=== PATIENT | female | born 1950 | race Caucasian/White ===

== ENCOUNTER 2017-03-04 07:37 | Day surgery (SDC) | payer MEDICAID ==
[2017-03-04] MEDS ORDERED: Sodium Chloride 0.9% 10 ML Syringe FLUSH PRN (08:30)
[2017-03-04 10:53] VITALS: BP 120/74
--- NOTE | 2017-03-05 13:36 | OR ---
DATE OF PROCEDURE: 03/04/2017 POSTOPERATIVE CARE: Postoperative care will be provided mainly at the [address] [place] [address] [facility] in conjunction with [facility]. PREOPERATIVE DIAGNOSIS: Cataract, right eye. PREOPERATIVE DIAGNOSIS: Cataract, right eye. PROCEDURE: Phacoemulsification with intraocular lens placement, right eye. ANESTHESIA: Topical and intracameral. ESTIMATED BLOOD LOSS: Minimal. COMPLICATIONS: None. PATHOLOGY SPECIMENS: None. SURGICAL FINDINGS: None. INDICATION FOR PROCEDURE: The patient is a 66-year-old female with history of a visually significant cataract in the right eye, which interfered with activities of daily living. This consisted of a nuclear sclerosis cataract. Following careful discussion of the risks, benefits and alternatives to cataract extraction with intraocular lens placement including blindness and , the patient elected to proceed, and informed, written consent was obtained prior to the procedure. DESCRIPTION OF THE PROCEDURE: The patient was previously identified, and a cole placed above the right eye. All sources, including the patient, indicated that the right eye was the correct eye. The patient was subsequently taken to the operating room where standard monitors were applied. The patient was then prepped and draped in the usual sterile fashion for ophthalmic surgery. Attention was first directed at the 12 o'clock position where a paracentesis port was fashioned. Shugar solution followed by Viscoat was instilled into the eye. Attention was then directed to the 8:30 position where a triplanar incision was made in a near-clear manner using a keratome. A continuous capsulorrhexis was then made using a combination of the cystotome and Utrata forceps. Hydrodissection was achieved using a balanced salt solution, and the lens rotated nicely. Phacoemulsification was then done using a modified [id number] technique without complication. Phaco time was 10.10 CDE. The remaining cortex was removed using the irrigation/aspiration handpiece. Provisc was then instilled into the eye. A Technis lens, model [id number], at 20.0 diopters was then placed in the capsular bag using an Reklaw injector. The remaining viscoelastic was removed using the irrigation/aspiration forceps. All wounds were then checked and found to be watertight. The lid speculum and drapes were removed. Maxitrol ointment was placed in the patient's right eye, and the eye was shielded. The patient tolerated the procedure well. The patient was instructed to follow up tomorrow. All needle and sponge counts were correct at the end of the procedure. Estephania Worthy MD /[id number]
== END 2017-03-04 10:40 | disposition home or self-care (01) ==
LOC: JP.SDS 07:37
PROVIDERS: ATTEND Ophthalmology
DX: H26.9 Unspecified cataract (principal); K21.9 Gastro-esophageal reflux disease without esophagitis; Z88.8 Allergy status to other drugs, medicaments and biological substances; Z91.040 Latex allergy status
CPT/HCPCS: 66984; C1780

== ENCOUNTER 2017-06-02 11:57 | Day surgery (SDC) | payer MEDICARE, BC | END 2017-06-02 15:35 | disposition home or self-care (01) | LOC: JP.SDS 11:57 | PROVIDERS: ATTEND Orthopaedic Surgery | DX: Z46.89 Encounter for fitting and adjustment of other specified devices (principal); Z91.040 Latex allergy status; Z88.8 Allergy status to other drugs, medicaments and biological substances; Z01.812 Encounter for preprocedural laboratory examination; Z13.83 Encounter for screening for respiratory disorder NEC; M54.5 Low back pain | CPT/HCPCS: 36415; 80053; 85027; 86850; 86870; 86900; 86901; 86905; 86906; 87070; 93005; 93010; 97535-GP; 97760-GP ==

== ENCOUNTER 2017-08-03 07:30 | Inpatient (IN) | payer MEDICARE, BC ==
[~2017-08-03 07:30] MED LIST: Povidone-Iodine 10% Soln 118.25 ML Bottle ONE; Thrombin (Bovine) 5,000 Unit Kit ONE
[2017-08-03] MEDS ORDERED: Acetaminophen 500 MG Tab PO ONE (08:00)
[2017-08-03] MEDS ORDERED: Scopolamine 1.5 MG Transdermal Patch TOP SCH (08:00)
[2017-08-03] MEDS ORDERED: Lactated Ringers 1,000 ML IV SCH (08:15)
[2017-08-03] MEDS ORDERED: Gabapentin 300 MG Cap PO ONE (08:15)
[2017-08-03] MEDS ORDERED: ceFAZolin 2 GM in Sodium Chloride 0.9% 50 ML IV ONE (09:30)
[2017-08-03] MEDS ORDERED: Ketamine 500 MG/5 ML MDV IV SCH (10:00)
[2017-08-03] MEDS ORDERED: Tranexamic Acid 1,000 MG in Sodium Chloride 0.9% 50 ML IV SCH (10:00)
[2017-08-03] MEDS ORDERED: Ropivacaine 49.25 ML, Ketorolac 30 MG, EPINEPHrine 0.5 MG, cloNIDine 80 MCG, Sodium Chl... INJECT ONE ×5 (10:00)
[2017-08-03] MEDS ORDERED: Tranexamic Acid 740 MG in Sodium Chloride 0.9% 50 ML IV SCH (10:00)
[2017-08-03] MEDS ORDERED: Propofol 200 MG/20 ML SDV ONE (10:02)
[2017-08-03] MEDS ORDERED: Neostigmine Methylsulfate 1 MG/ML 5 ML Syringe ONE (10:02)
[2017-08-03] MEDS ORDERED: Ondansetron 4 MG/2 ML SDV ONE ×2 (10:02→13:44)
[2017-08-03] MEDS ORDERED: Rocuronium 50 MG/5 ML Vial ONE ×2 (10:02→11:50)
[2017-08-03] MEDS ORDERED: Glycopyrrolate 0.2 MG/ML 5 ML MDV ONE (10:02)
[2017-08-03] MEDS ORDERED: Dexamethasone 4 MG/ML SDV ONE (10:02)
[2017-08-03] MEDS ORDERED: Succinylcholine 200 MG/10 ML MDV ONE (10:02)
[2017-08-03] MEDS ORDERED: Midazolam 1 MG/ML 2 ML SDV ONE (10:21)
[2017-08-03] MEDS ORDERED: HYDROmorphone/Normal Saline 15 MG/30 ML PCA IV PRN (10:56)
[2017-08-03] MEDS ORDERED: Naloxone 0.4 MG/ML SDV IV PRN ×2 (11:04→15:34)
[2017-08-03] MEDS ORDERED: Lactated Ringers 1,000 ML ONE (12:00)
[2017-08-03] MEDS ORDERED: Cyclobenzaprine 10 MG Tab PO PRN (15:39)
[2017-08-03] MEDS: Dextrose 5%-Lactated Ringers 1,000 ML IV SCH (15:56)
[2017-08-03] MEDS: SCOPOLAMINE PATCH CHECK TOP SCH (15:56)
[2017-08-03] MEDS ORDERED: Ondansetron 4 MG/2 ML SDV IVPUSH PRN (16:00)
[2017-08-03] MEDS ORDERED: hydrOXYzine HCl 100 MG/2 ML SDV IM PRN (16:00)
[2017-08-03] MEDS: Gabapentin 300 MG Cap PO SCH ×2 (16:23→22:47)
[2017-08-03] MEDS: Acetaminophen 325 MG Tab PO SCH ×2 (16:23→22:48)
[2017-08-03] MEDS: Pantoprazole 40 MG Vial IVPUSH SCH (16:24)
[2017-08-03] MEDS: ceFAZolin 2 GM in Sodium Chloride 0.9% 50 ML IV SCH (17:40)
[2017-08-03] MEDS ORDERED: diphenhydrAMINE 50 MG/ML SDV IVPUSH PRN (19:55)
--- NOTE | 2017-08-03 20:38 | OR ---
DATE OF PROCEDURE: 08/03/2017 PREOPERATIVE DIAGNOSIS: L5-S1 stenosis. POSTOPERATIVE DIAGNOSIS: L5-S1 stenosis. PROCEDURES PERFORMED: Anterior lumbar interbody fusion at L5-S1. CO-SURGEON: Olivier Hill MD. PSYCH TECH: BEVERLY Smith. Physician orthotics prosthetics assistant, Flaca Zamora NP, played an essential role in assisting in this case, helping to position the patient, retract structures as needed, as well as suturing and cutting sutures as indicated. Her presence improved patient's safety and decreased operative time. ANESTHESIA: General endotracheal intubation. FLUIDS: Lactated Ringer solution. ESTIMATED BLOOD LOSS: 400 mL. COMPLICATIONS: None. SPECIMENS: None. DISCHARGE DISPOSITION: Stable to PACU. HISTORY AND INDICATIONS FOR PROCEDURE: The patient was seen preoperatively in the clinic. She had failed non-operative treatment. Risks and benefits of the procedure were explained to the patient, and informed consent was obtained. Preoperative imaging confirmed the above- mentioned diagnosis. DETAILS OF PROCEDURE: The patient was seen preoperatively in the preoperative holding area, where the operative site was marked. She was brought to the operative suite by the Anesthesia staff where general anesthesia was administered. Neuromonitoring leads were placed and normal at baseline, and remained normal throughout the case. She had a sterile Roblero catheter placed. She was then placed onto a Reji table with a flat table in a supine position. All extremities were found to be well padded. The abdomen was then prepped and draped in a sterile manner. Time-out was called identifying the correct patient, the correct procedure, the correct site, and that antibiotics had begun within appropriate period of time. Please see Dr. Olivier Hill's note for exposure. After the exposure had been obtained and confirmed on lateral and AP fluoroscopy to be in good position, I then went through the anterior longitudinal ligament and annulus with the Bovie electrocautery to demarcate the margins of the disk space. We used a #10 blade to incise through the annulus and nucleus pulposus as well as the attachments to the vertebrae. I then used a wide Townsend along the inferior L5 and superior S1 endplates. I then removed most of the disk en bloc. I then used curettes and pituitaries to remove the remainder of the disk as back as far as I could. I then started with a 9-mm wedge on the side of the stenosis, which was the left, and it was very difficult to get in. I then was able to get in with an 11, and then moved to a 13 on the right and then a 13 on the left, and a 15 on the right and a 15 on the left. I confirmed that this had been opened wide enough on fluoroscopy. As I widened it, I was able to remove more of the posterior disk down to the level of the posterior longitudinal ligament. After this had been accomplished, I then inserted a trial 15, 25 x 31 implant and confirmed that this was in good position on fluoroscopy. After this had been accomplished, we then inserted our final Magnify-S by Globus 25 x 31, 14 to 17, 15-degree implant posteriorly enough on lateral fluoroscopy. Then, using an awl and screws, inserted a 25-mm screw into L5 and then two 30-mm screws into S1. Because of how far the S1 screw went, I did remove the screw, and then checked with a spinal needle that we were still in bone, and which we were. We then locked the screws into place with a locking mechanism and then irrigated again with saline. We took our final AP and lateral films, which showed the implant in good position. We then handed the case back off to Dr. Olivier Hill. Please see his notes for closure. Rai Hill DO /[id number]
[2017-08-03] MEDS: Metoprolol Tartrate 25 MG Tab PO SCH (22:46)
[2017-08-03] MEDS: Sulfamethoxazole/Trimethoprim 800-160 MG Tab PO SCH (22:48)
[2017-08-04] MEDS: ceFAZolin 2 GM in Sodium Chloride 0.9% 50 ML IV SCH ×2 (01:53→09:37)
[2017-08-04] MEDS: Acetaminophen 325 MG Tab PO SCH ×4 (03:41→22:00)
[2017-08-04] MEDS: Dextrose 5%-Lactated Ringers 1,000 ML IV SCH (05:52)
[2017-08-04] MEDS ORDERED: Dextrose 5%-Lactated Ringers 1,000 ML IV SCH (07:24)
[2017-08-04] MEDS ORDERED: HYDROmorphone 2 MG Tab PO PRN (07:46)
[2017-08-04] MEDS: Aspirin 81 MG Tab.EC PO SCH (09:26)
[2017-08-04] MEDS: Gabapentin 300 MG Cap PO SCH ×3 (09:26→21:55)
[2017-08-04] MEDS: SCOPOLAMINE PATCH CHECK TOP SCH (09:32)
[2017-08-04] MEDS: Sulfamethoxazole/Trimethoprim 800-160 MG Tab PO SCH ×2 (09:33→22:00)
[2017-08-04] MEDS: Metoprolol Tartrate 25 MG Tab PO SCH ×2 (10:19→21:56)
--- NOTE | 2017-08-04 10:57 | PN ---
DATE OF SERVICE: 08/04/2017 SUBJECITVE: Ping is postop day 1. She is alert. TPR is 97.7, 58, 20, blood pressure 97/50. O2 saturation by pulse oximetry is 91%. States her pain is controlled. She has no other questions or concerns. OBJECTIVE: GENERAL: Ping is a 67-year-old female. VITAL SIGNS: TPR is 97.7, 58, 20, blood pressure 97/50. Oral intake 50. She has been on ice chips. Output 1020. ESTELLA drain put out 50 mL of a light pink serosanguineous drainage. HEENT: Negative. NECK: Supple. HEART: Regular rate and rhythm. LUNGS: Clear. ABDOMEN: Dressings dry and intact. Abdominal binder is on. EXTREMITIES: Without peripheral edema. ASSESSMENT: Anterior lumbar interbody fusion at L5-S1 for L5-S1 stenosis. Date of surgery 08/03/2017. PLAN: 1. 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 2. Discontinue continuous pulse ox. 3. Dilaudid 2 mg 1 to 2 every 4 hours p.r.n. pain. 4. Discontinue Roblero. 5. Regular diet. 6. Decrease IV to 100 mL per hour now. 7. Saline lock IV if oral intake adequate. 8. Senna Plus 2 b.i.d. p.o. 9. Good pulmonary toilet. 10.We will evaluate p.r.n. or in a.m. Maliha Alcantara PA-C /[id number]
[2017-08-04] MEDS: HYDROmorphone 2 MG Tab PO PRN ×2 (14:50→20:14)
[2017-08-04] MEDS: Pantoprazole 40 MG Vial IVPUSH SCH (16:37)
[2017-08-05] MEDS: Acetaminophen 325 MG Tab PO SCH ×4 (03:07→21:08)
[2017-08-05] MEDS: Aspirin 81 MG Tab.EC PO SCH (09:06)
[2017-08-05] MEDS: Sulfamethoxazole/Trimethoprim 800-160 MG Tab PO SCH (09:07)
[2017-08-05] MEDS: Gabapentin 300 MG Cap PO SCH ×3 (09:07→20:03)
[2017-08-05] MEDS: SCOPOLAMINE PATCH CHECK TOP SCH (09:09)
[2017-08-05] MEDS: Metoprolol Tartrate 25 MG Tab PO SCH ×2 (11:32→20:05)
[2017-08-05] MEDS: HYDROmorphone 2 MG Tab PO PRN ×2 (12:34→21:10)
[2017-08-05] MEDS ORDERED: Pantoprazole 40 MG Tab.CR PO SCH (16:30)
[2017-08-06] MEDS: Acetaminophen 325 MG Tab PO SCH ×2 (03:33→10:01)
--- NOTE | 2017-08-06 05:34 | PCM.PN ---
- General Info Date of Service: 08/06/17 Admission Dx/Problem (Free Text): Patient is doing well. She did get behind on her pain medication. She did get a good night sleep. She ambulated much better. Functional Status: Reports: Pain Controlled, Tolerating Diet, Ambulating, Urinating - Patient Data Vitals - Most Recent: Last Vital Signs Temp 36.5 C 08/06/17 03:00 Pulse 74 08/06/17 03:00 Resp 16 08/06/17 03:00 BP 117/66 08/06/17 03:00 Pulse Ox 92 L 08/06/17 03:00 Weight - Most Recent: 157 lb I&O - Last 24 Hours: Intake & Output 08/05/17 08/05/17 08/06/17 14:59 22:59 06:59 Intake Total 360 355 500 Output Total 850 5 Balance 360 -495 495 Med Orders - Current: Current Medications Acetaminophen (Tylenol) 650 mg PO Q6H [facility] Last Admin: 08/06/17 03:33 Dose: 650 mg Aspirin (Halfprin) 81 mg PO DAILY [facility] Last Admin: 08/05/17 09:06 Dose: 81 mg Cyclobenzaprine HCl (Flexeril) 10 mg PO Q6H PRN PRN Reason: Muscle Spasm Last Admin: 08/05/17 23:38 Dose: 10 mg Diphenhydramine HCl (Benadryl) 25 - 50 mg IVPUSH Q4H PRN PRN Reason: Itching Last Admin: 08/03/17 21:36 Dose: 25 mg Gabapentin (Neurontin) 300 mg PO TID [facility] Last Admin: 08/05/17 20:03 Dose: 300 mg Hydromorphone HCl (Dilaudid) 2 - 4 mg PO Q4H PRN PRN Reason: Pain Last Admin: 08/05/17 21:10 Dose: 2 mg Hydroxyzine HCl (Vistaril) 100 mg IM Q4H PRN PRN Reason: pain Dextrose/Lactated Ringer's (Dextrose 5%-Lactated Ringers) 1,000 mls @ 100 mls/ hr IV ASDIRECTED [facility] Metoprolol Tartrate (Lopressor) 25 mg PO BID [facility] Last Admin: 08/05/17 20:05 Dose: 25 mg Ondansetron HCl (Zofran) 4 mg IVPUSH Q4H PRN PRN Reason: Nausea/Vomiting Pantoprazole Sodium (Protonix) 40 mg PO DAILY@1630 [facility] Last Admin: 08/05/17 15:31 Dose: 40 mg Senna/Docusate Sodium (Senna Plus) 2 tab PO BID [facility] Last Admin: 08/05/17 20:07 Dose: 2 tab Discontinued Medications Acetaminophen (Tylenol Extra Strength) 1,000 mg PO ONETIME ONE Stop: 08/03/17 08:01 Last Admin: 08/03/17 08:26 Dose: 1,000 mg Dexamethasone (Dexamethasone) Confirm Administered Dose 4 mg .ROUTE .STK-MED ONE Stop: 08/03/17 10:03 Fentanyl Citrate (Fentanyl) Confirm Administered Dose 500 mcg .ROUTE .STK-MED ONE Stop: 08/03/17 10:03 Fentanyl Citrate (Fentanyl) Confirm Administered Dose 500 mcg .ROUTE .STK-MED ONE Stop: 08/03/17 11:30 Gabapentin (Neurontin) 300 mg PO ONETIME ONE Stop: 08/03/17 08:16 Last Admin: 08/03/17 08:26 Dose: 300 mg Glycopyrrolate (Robinul) Confirm Administered Dose 1 mg .ROUTE .STK-MED ONE Stop: 08/03/17 10:03 Hydromorphone HCl (Dilaudid Medical Representative 15 Mg In Ns 30 Ml) 0 mg IV ASDIRECTED PRN; Protocol PRN Reason: Pain Last Admin: 08/03/17 11:16 Dose: 0.3 mg Cefazolin Sodium 2 gm/ Sodium (Chloride) 50 mls @ 100 mls/hr IV ONETIME ONE Stop: 08/03/17 09:59 Last Admin: 08/03/17 10:30 Dose: 100 mls/hr Lactated Ringer's (Ringers, Lactated) 1,000 mls @ 0 mls/hr IV ASDIRECTED [facility] PRN Reason: KVO Last Admin: 08/03/17 08:27 Dose: 25 mls/hr Linezolid (Zyvox) Confirm Administered Dose 100 mls @ as directed .ROUTE .STK- MED ONE Stop: 08/03/17 06:47 Propofol (Diprivan 100 Ml) Confirm Administered Dose 100 mls @ as directed .ROUTE .STK-MED ONE Stop: 08/03/17 10:38 Lactated Ringer's (Ringers, Lactated) Confirm Administered Dose 1,000 mls @ as directed .ROUTE .STK-MED ONE Stop: 08/03/17 12:01 Dextrose/Lactated Ringer's (Dextrose 5%-Lactated Ringers) 1,000 mls @ 150 mls/ hr IV ASDIRECTED [facility] Last Admin: 08/04/17 05:52 Dose: 150 mls/hr Cefazolin Sodium 2 gm/ Sodium (Chloride) 50 mls @ 100 mls/hr IV Q8H [facility] Stop: 08/04/17 09:59 Last Admin: 08/04/17 09:37 Dose: 100 mls/hr Midazolam HCl (Versed 1 Mg/Ml) Confirm Administered Dose 2 mg .ROUTE .STK-MED ONE Stop: 08/03/17 10:22 Miscellaneous Information (Remove Patch) 1 ea TRDERM ONETIME ONE Stop: 08/05/17 10:01 Last Admin: 08/05/17 09:10 Dose: 1 ea Naloxone HCl (Narcan) 0.1 mg IV ASDIRECTED PRN PRN Reason: decreased respiratory rate Neostigmine Methylsulfate (Neostigmine) Confirm Administered Dose 5 mg .ROUTE .STK-MED ONE Stop: 08/03/17 10:03 Scopolamine Patch (Check) 1 each TOP DAILY [facility] Stop: 08/05/17 10:00 Last Admin: 08/05/17 09:09 Dose: Not Given Ondansetron HCl (Zofran) Confirm Administered Dose 4 mg .ROUTE .STK-MED ONE Stop: 08/03/17 10:03 Ondansetron HCl (Zofran) Confirm Administered Dose 4 mg .ROUTE .STK-MED ONE Stop: 08/03/17 13:45 Pantoprazole Sodium (Protonix Iv) 40 mg IVPUSH Q24H [facility] Last Admin: 08/04/17 16:37 Dose: 40 mg Povidone Iodine (Betadine 10% Soln) Confirm Administered Dose 1 ml .ROUTE .STK- MED ONE Stop: 08/03/17 06:48 Propofol (Diprivan 20 Ml) Confirm Administered Dose 200 mg .ROUTE .STK-MED ONE Stop: 08/03/17 10:03 Rocuronium Harmony (Zemuron) Confirm Administered Dose 50 mg .ROUTE .STK-MED ONE Stop: 08/03/17 10:03 Rocuronium Harmony (Zemuron) Confirm Administered Dose 50 mg .ROUTE .STK-MED ONE Stop: 08/03/17 11:51 Scopolamine (Transderm-Scop) 1.5 mg TOP Q72H [facility] Stop: 08/05/17 10:00 Last Admin: 08/03/17 08:26 Dose: 1.5 mg Succinylcholine Chloride (Quelicin) Confirm Administered Dose 200 mg .ROUTE .STK -MED ONE Stop: 08/03/17 10:03 Thrombin (Thrombin-Jmi) Confirm Administered Dose 15,000 unit .ROUTE .STK-MED ONE Stop: 08/03/17 06:47 Trimethoprim/Sulfamethoxazole (Septra Ds) 1 tab PO BID [facility] Last Admin: 08/05/17 09:07 Dose: 1 tab - Exam General: Alert, Oriented Back Exam: Normal Inspection Extremities: Normal Inspection, Normal Range of Motion, Non-Tender, No Pedal Edema, Normal Capillary Refill Peripheral Pulses: 2+: Dorsalis Pedis (L), Dorsalis Pedis (R) Skin: Warm, Dry, Intact Wound/Incisions: Healing Well, Dressing Dry and Intact Neurological: No New Focal Deficit Psy/Mental Status: Alert - Problem List Review Problem List Initiated/Reviewed/Updated: Yes - Plan Plan:: Patient will be planned to be discharged today. She will continue on oral pain medication as prescribed. I will recommend for her having home health services.
[2017-08-06 07:21] VITALS: BP 111/56
--- NOTE | 2017-08-06 07:51 | DISCH ---
ADMISSION DIAGNOSES: 1. Low back pain at L5 to S1. 2. Waggoner esophagus. 3. Breast cancer, left. 4. Breast cancer, right. DISCHARGE DIAGNOSIS: Anterior lumbar interbody fusion for L5-S1 stenosis. Date of surgery was 08/03/2017. General anesthesia. Surgeons were Olivier Hill MD and Rai Hill DO. HISTORY: Ping is a 67-year-old female with chronic back pain. After preoperative evaluation and discussion of possible risks and possible complications, she wished to proceed with surgical procedure. HOSPITAL COURSE: Ping had her surgery on 08/03/2017. She had no operative complications. On postoperative day #1, she was started on oral pain medication. She received physical therapy. She had bowel stimulation. On postoperative day #2, her pain was well managed. Vital signs were stable. Activity was good, and she was able to be discharged to home. PHYSICAL EXAMINATION: GENERAL: Ping is a 67-year-old female. VITAL SIGNS: Height is 5 feet 5 inches. Weight is 157 pounds and BMI is 26. TPR with temperature of 98.9, pulse of 64, and respirations of 18. Blood pressure was 87/49 and O2 sats by pulse oximetry was 95%. HEENT: Negative. NECK: Supple. HEART: Regular rate and rhythm. PULMONARY: Lungs are clear. ABDOMEN: Aquacel dressing is on. It will be removed prior to discharge. ESTELLA drain is intact, and will be left in. It is draining a light red drainage. Abdominal binder has been on. EXTREMITIES: Without peripheral edema. DISPOSITION: Discharged to home. CONDITION: Stable and improving. FOLLOWUP APPOINTMENTS: Maliha Alcantara PA-C on 08/12/2017 at 10 a.m. She has a followup appointment with Dr. Evgeny Hill per his order. HOME MEDICATIONS: 1. Tylenol 650 mg oral q.6 hours p.r.n. pain. 2. Senna Plus two tablets oral twice daily, #60. 3. Dilaudid 2 mg one to two every 4 hours p.r.n. severe pain, #20. She is to resume her home medications of 1. Pepcid 40 mg at bedtime. 2. Claritin 10 mg oral daily. 3. Lopressor 25 mg oral twice daily. 4. Tizanidine 4 mg oral daily. DIET AFTER DISCHARGE: Usual diet as tolerated. Drink eight to ten glasses of water a day. ACTIVITY: No lifting greater than 10 pounds for six months. Driving, do not drive while on pain medication. She may shower. DISCHARGE INSTRUCTIONS: Notify provider if fever, increased pain, drainage, nausea, or vomiting. Wound, keep site clean and dry. Wear abdominal binder for six weeks, and then as tolerated. Empty and record drainage from the ESTELLA drain four times a day. SPECIAL INSTRUCTIONS Use incentive spirometer 10 times every hour while awake. Follow postoperative instructions from Dr. Evgeny Hill regarding your back.
[2017-08-06] MEDS: Metoprolol Tartrate 25 MG Tab PO SCH (08:08)
[2017-08-06] MEDS: Gabapentin 300 MG Cap PO SCH (08:08)
[2017-08-06] MEDS: Aspirin 81 MG Tab.EC PO SCH (08:08)
[2017-08-06] MEDS: HYDROmorphone 2 MG Tab PO PRN ×2 (08:09→11:50)
--- NOTE | 2017-08-06 12:48 | DISCH ---
HOSPITAL COURSE: Ping is postop day #3 following a lumbar spinal fusion. She was discharged officially yesterday. She had some low blood pressures in the morning of 87/49, 84/85, 93/52 that was at 11:12. The next time it was checked was 106/58 and 118/51. Also, she has been getting behind on pain medicine. REVIEW OF SYSTEMS: Remainder of review of systems was negative for any pertinent positives and negatives. PHYSICAL EXAMINATION: GENERAL: Ping is a 67-year-old female. VITAL SIGNS: TPR 99.1, 62, 18, and blood pressure 111/56. HEENT: Negative. NECK: Supple. HEART: Regular rate and rhythm. LUNGS: Clear. ABDOMEN: Dressings dry and intact. Abdominal binder is on. EXTREMITIES: Negative. PLAN: May be discharged to home. See copy of discharge summary from 08/05/2017 at 0800 hours.
--- NOTE | 2017-08-09 09:18 | OR ---
DATE OF PROCEDURE: 08/03/2017 PREOPERATIVE DIAGNOSIS: Lumbar stenosis involving L5-S1 level. POSTOPERATIVE DIAGNOSES: 1. Lumbar stenosis involving L5-S1 level. 2. Avulsion of branch of left common iliac vein. OPERATIVE PROCEDURES: 1. Provision of exposure of L5-S1 to facilitate anterior lumbar interbody fusion ([id number]). 2. Lateral repair of left common iliac vein ([id number]). ANESTHESIA: General. TWISTER IN: BEVERLY Ordaz INDICATION FOR PROCEDURE: This is a 67-year-old presenting with lumbar stenosis involving L5 and S1. After preoperative evaluation by Dr. Evgeny Hill, the plan is to proceed with an anterior lumbar interbody fusion. Potential risks of the procedure were reviewed with the patient including bleeding, infection, injury to the vasculature in the area with potentially life-threatening bleeding, injury to the ureter or other viscera in the vicinity were all reviewed, and the patient wishes to proceed. DETAILS OF PROCEDURE: The patient was taken to the operating room and after general endotracheal anesthesia was induced, she was placed in a supine position with a roll underneath the left knee to loosen the psoas muscle. Roblero catheter was inserted. A left lower abdominal paramedian incision was then made and carried down through the skin and subcutaneous tissue, and through the midportion of the rectus sheath. Subrectus sheath flaps were then raised laterally to the edge of the rectus muscle. At that point, the peritoneum lateral and posteriorly to the area of incision was reflected away and then retracted medially. Initially, the dissection continued over the course of the psoas muscle and neural complex was then elevated above with the peritoneum eventually exposing the distal aorta over to the level of the right iliac vessels. The dissection of the left iliac vein then began in order to obtain an adequate width of exposure of the L5-S1 interspace. A branch at that point was noted to be densely adherent to the posterior periosteum and a small avulsion was noted. This was controlled with pressure proximally and distally, and a lateral repair of the common iliac vein on the left side where the branches avulsed more or less flush with the remainder of the iliac vessel was accomplished with a [id number] stitch of 5-0 Whiteside-Rodney stitch. Of course, this did result in around 400 mL of bleeding, but the patient remained hemodynamically stable. At this point, the additional retraction was accomplished with a retractor set and then securing an adequate width of the L5-S1 interspace. The orthopedic portion of the procedure was then conducted. This would be a separate dictation with Dr. Evgeny Hill. Upon completion of the interbody fusion, the area was inspected. Some fibrin sealant was placed over the area of the vascular repair and the entire incision was irrigated with Zyvox- containing saline solution. The retractors were removed and no bleeding or other problems were noted at this point. The rectus fascia was approximated with a #2 Vicryl stitch. The subcutaneous tissue was drained with a 10-Wolof round Reji-Bateman drain placed superior to the main incision, and the subcutaneous tissue was closed with 2 layers of 3-0 Vicryl stitch, this was also used to fix the drain in place. The skin was then closed with davian. There were no evident complications. The patient was taken to the recovery room in a satisfactory condition. Olivier Hill MD /[id number]
--- NOTE | 2017-08-24 11:09 | PCM.PN ---
- General Info Date of Service: 08/05/17 Subjective Update: Patient is pod 1 of a ALIF. She is doing well. She continue to have her pain controlled at this time. Functional Status: Reports: Pain Controlled, Tolerating Diet, Ambulating - Patient Data Vitals - Most Recent: Last Vital Signs Temp 37.3 C 08/06/17 07:00 Pulse 62 08/06/17 08:08 Resp 18 08/06/17 07:00 BP 111/56 L 08/06/17 08:08 Pulse Ox 92 L 08/06/17 07:00 Weight - Most Recent: 157 lb Med Orders - Current: Current Medications Discontinued Medications Acetaminophen (Tylenol Extra Strength) 1,000 mg PO ONETIME ONE Stop: 08/03/17 08:01 Last Admin: 08/03/17 08:26 Dose: 1,000 mg Acetaminophen (Tylenol) 650 mg PO Q6H [facility] Last Admin: 08/06/17 10:01 Dose: 650 mg Aspirin (Halfprin) 81 mg PO DAILY [facility] Last Admin: 08/06/17 08:08 Dose: 81 mg Cyclobenzaprine HCl (Flexeril) 10 mg PO Q6H PRN PRN Reason: Muscle Spasm Last Admin: 08/05/17 23:38 Dose: 10 mg Dexamethasone (Dexamethasone) Confirm Administered Dose 4 mg .ROUTE .STK-MED ONE Stop: 08/03/17 10:03 Diphenhydramine HCl (Benadryl) 25 - 50 mg IVPUSH Q4H PRN PRN Reason: Itching Last Admin: 08/03/17 21:36 Dose: 25 mg Fentanyl Citrate (Fentanyl) Confirm Administered Dose 500 mcg .ROUTE .STK-MED ONE Stop: 08/03/17 10:03 Fentanyl Citrate (Fentanyl) Confirm Administered Dose 500 mcg .ROUTE .STK-MED ONE Stop: 08/03/17 11:30 Gabapentin (Neurontin) 300 mg PO ONETIME ONE Stop: 08/03/17 08:16 Last Admin: 08/03/17 08:26 Dose: 300 mg Gabapentin (Neurontin) 300 mg PO TID [facility] Last Admin: 08/06/17 08:08 Dose: 300 mg Glycopyrrolate (Robinul) Confirm Administered Dose 1 mg .ROUTE .STK-MED ONE Stop: 08/03/17 10:03 Hydromorphone HCl (Dilaudid Entrance Guard 15 Mg In Ns 30 Ml) 0 mg IV ASDIRECTED PRN; Protocol PRN Reason: Pain Last Admin: 08/03/17 11:16 Dose: 0.3 mg Hydromorphone HCl (Dilaudid) 2 - 4 mg PO Q4H PRN PRN Reason: Pain Last Admin: 08/06/17 11:50 Dose: 4 mg Hydroxyzine HCl (Vistaril) 100 mg IM Q4H PRN PRN Reason: pain Cefazolin Sodium 2 gm/ Sodium (Chloride) 50 mls @ 100 mls/hr IV ONETIME ONE Stop: 08/03/17 09:59 Last Admin: 08/03/17 10:30 Dose: 100 mls/hr Lactated Ringer's (Ringers, Lactated) 1,000 mls @ 0 mls/hr IV ASDIRECTED HERBER PRN Reason: KVO Last Admin: 08/03/17 08:27 Dose: 25 mls/hr Linezolid (Zyvox) Confirm Administered Dose 100 mls @ as directed .ROUTE .STK- MED ONE Stop: 08/03/17 06:47 Propofol (Diprivan 100 Ml) Confirm Administered Dose 100 mls @ as directed .ROUTE .STK-MED ONE Stop: 08/03/17 10:38 Lactated Ringer's (Ringers, Lactated) Confirm Administered Dose 1,000 mls @ as directed .ROUTE .STK-MED ONE Stop: 08/03/17 12:01 Dextrose/Lactated Ringer's (Dextrose 5%-Lactated Ringers) 1,000 mls @ 150 mls/ hr IV ASDIRECTED [facility] Last Admin: 08/04/17 05:52 Dose: 150 mls/hr Cefazolin Sodium 2 gm/ Sodium (Chloride) 50 mls @ 100 mls/hr IV Q8H [facility] Stop: 08/04/17 09:59 Last Admin: 08/04/17 09:37 Dose: 100 mls/hr Dextrose/Lactated Ringer's (Dextrose 5%-Lactated Ringers) 1,000 mls @ 100 mls/ hr IV ASDIRECTED [facility] Metoprolol Tartrate (Lopressor) 25 mg PO BID [facility] Last Admin: 08/06/17 08:08 Dose: 25 mg Midazolam HCl (Versed 1 Mg/Ml) Confirm Administered Dose 2 mg .ROUTE .STK-MED ONE Stop: 08/03/17 10:22 Miscellaneous Information (Remove Patch) 1 ea TRDERM ONETIME ONE Stop: 08/05/17 10:01 Last Admin: 08/05/17 09:10 Dose: 1 ea Naloxone HCl (Narcan) 0.1 mg IV ASDIRECTED PRN PRN Reason: decreased respiratory rate Neostigmine Methylsulfate (Neostigmine) Confirm Administered Dose 5 mg .ROUTE .STK-MED ONE Stop: 08/03/17 10:03 Scopolamine Patch (Check) 1 each TOP DAILY [facility] Stop: 08/05/17 10:00 Last Admin: 08/05/17 09:09 Dose: Not Given Ondansetron HCl (Zofran) Confirm Administered Dose 4 mg .ROUTE .STK-MED ONE Stop: 08/03/17 10:03 Ondansetron HCl (Zofran) Confirm Administered Dose 4 mg .ROUTE .STK-MED ONE Stop: 08/03/17 13:45 Ondansetron HCl (Zofran) 4 mg IVPUSH Q4H PRN PRN Reason: Nausea/Vomiting Pantoprazole Sodium (Protonix Iv) 40 mg IVPUSH Q24H [facility] Last Admin: 08/04/17 16:37 Dose: 40 mg Pantoprazole Sodium (Protonix) 40 mg PO DAILY@1630 [facility] Last Admin: 08/05/17 15:31 Dose: 40 mg Povidone Iodine (Betadine 10% Soln) Confirm Administered Dose 1 ml .ROUTE .STK- MED ONE Stop: 08/03/17 06:48 Propofol (Diprivan 20 Ml) Confirm Administered Dose 200 mg .ROUTE .STK-MED ONE Stop: 08/03/17 10:03 Rocuronium [place] (Zemuron) Confirm Administered Dose 50 mg .ROUTE .STK-MED ONE Stop: 08/03/17 10:03 Rocuronium [place] (Zemuron) Confirm Administered Dose 50 mg .ROUTE .STK-MED ONE Stop: 08/03/17 11:51 Scopolamine (Transderm-Scop) 1.5 mg TOP Q72H [facility] Stop: 08/05/17 10:00 Last Admin: 08/03/17 08:26 Dose: 1.5 mg Senna/Docusate Sodium (Senna Plus) 2 tab PO BID [facility] Last Admin: 08/06/17 08:08 Dose: 2 tab Succinylcholine Chloride (Quelicin) Confirm Administered Dose 200 mg .ROUTE .STK -MED ONE Stop: 08/03/17 10:03 Thrombin (Thrombin-Jmi) Confirm Administered Dose 15,000 unit .ROUTE .STK-MED ONE Stop: 08/03/17 06:47 Trimethoprim/Sulfamethoxazole (Septra Ds) 1 tab PO BID [facility] Last Admin: 08/05/17 09:07 Dose: 1 tab - Exam General: Alert, Oriented Extremities: Normal Inspection, Normal Range of Motion, Non-Tender, No Pedal Edema Peripheral Pulses: 2+: Dorsalis Pedis (L), Dorsalis Pedis (R) Skin: Warm, Dry, Intact Wound/Incisions: Healing Well, Dressing Dry and Intact Neurological: No New Focal Deficit Psy/Mental Status: Alert - Problem List Review Problem List Initiated/Reviewed/Updated: Yes - Plan Plan:: She will continue on oral pain medication as prescribed. We discussed possible dc tomorrow. She is to to continue to work with Pt/OT.
== END 2017-08-06 12:20 | disposition home health service (06) | DRG 460 ==
LOC: EDSTATUS 07:30 → JP.SDS 07:54 → JP.MS 07:54
PROVIDERS: ADMIT Orthopaedic Surgery; ATTEND Orthopaedic Surgery
PROC: 0SG00A0 Fusion of Lumbar Vertebral Joint with Interbody Fusion Device, Anterior Approach, Anterior Column, Open Approach (ICD-10-PCS; principal; 2017-08-03)
PROC: 0ST20ZZ Resection of Lumbar Vertebral Disc, Open Approach (ICD-10-PCS; 2017-08-03)
DX: M48.062 Spinal stenosis, lumbar region with neurogenic claudication (principal); I10 Essential (primary) hypertension; K21.9 Gastro-esophageal reflux disease without esophagitis; Z85.3 Personal history of malignant neoplasm of breast; Z87.440 Personal history of urinary (tract) infections; Z91.040 Latex allergy status; Z88.5 Allergy status to narcotic agent; Z88.8 Allergy status to other drugs, medicaments and biological substances; Z91.048 Other nonmedicinal substance allergy status; K22.70 Barrett's esophagus without dysplasia
CPT/HCPCS: 36415; 76001; 80048; 83735; 84100; 85027; 86850; 86870; 86900; 86901; 86902; 86920; 86922; 94762; 97116-GP; 97162-GP; 97165-GO; 97530-GP; 97535-GP; A9270-GY; C1713; C9113; J0330; J0690; J1100; J1170; J1200; J2020; J2250; J2405; J2704; J2710; J3010; J3490; J7042; J7050; J7120

== ENCOUNTER 2018-02-27 18:49 | Emergency (ER) | payer MEDICARE, BC ==
[2018-02-27 18:53] VITALS: BP 129/58
--- NOTE | 2018-02-27 20:17 | EDM.PDOC ---
ED HPI GENERAL MEDICAL PROBLEM - General Chief Complaint: General Stated Complaint: MEDICAL VIA [facility] Time Seen by Provider: 02/27/18 19:45 Source of Information: Reports: Patient, EMS, RN History Limitations: Reports: No Limitations - History of Present Illness INITIAL COMMENTS - FREE TEXT/NARRATIVE: 67 yo female lives alone and has been using Percocet 1 tid for hip pain after hip replacement recently. She describes sleeping too much and feeling out of it. At one time her BP was felt to be too low per home health. Does not have a follow up appt until next week. Got a little overwhelmed and called 911. Now here in the ER her last dose of oxycodone has mostly worn off and she feels much better. Onset: Gradual Duration: Day(s):, Getting Worse Location: Reports: Generalized Severity: Moderate Improves with: Reports: Other (not taking oxycodone) Worsens with: Reports: Medication (oxycodone) Context: Reports: Other (Recent surgery to replace a hip joint in [place]. ) Associated Symptoms: Reports: Malaise, Weakness. Denies: Confusion, Diaphoresis , Fever/Chills, Loss of Appetite, Nausea/Vomiting, Shortness of Breath Treatments SYSTEM DISPATCHER: Reports: Acetaminophen, NSAIDS, Other (see below) (gabapentin and oxycodone) Left Hip Pain Score (Numeric/FACES): 2 - Related Data Allergies Allergy/AdvReac Type Severity Reaction Status Date / Time fenofibrate Allergy Rash Verified 02/27/18 19:04 glucosamine Allergy Rash Verified 02/27/18 19:04 latex Allergy Hives Verified 02/27/18 19:04 niacin Allergy Rash Verified 02/27/18 19:04 cortisone AdvReac Nausea and Verified 02/27/18 19:04 Vomiting morphine AdvReac Vomiting Verified 02/27/18 19:04 [id number]-[id number]-Zdy Reductase AdvReac Muscle Verified 02/27/18 19:04 Inhibitor Aches Home Meds: Home Meds Aspirin 81 mg PO DAILY 03/04/17 [History] Ca/D3/Mag#11/Zinc/Master At Arms/Nadir/Bor [Caltrate 600+D Plus Tablet] 1 tab PO BID [History] Famotidine [Pepcid] 40 mg PO BEDTIME 03/04/17 [History] Metoprolol Tartrate [Lopressor] 25 mg PO BID 03/04/17 [History] tiZANidine HCl [Tizanidine HCl] 4 mg PO DAILY 05/06/17 [History] Loratadine [Claritin] 10 mg PO DAILY PRN 08/02/17 [History] Acetaminophen [Tylenol Extra Strength] 1,000 mg PO Q6H 08/03/17 [History] Acetaminophen/HYDROcodone [[place] 325-5 MG] 1 tab PO Q6H PRN 08/12/17 [History] Gabapentin [Neurontin] 100 mg PO TID #120 capsule 09/27/17 [Rx] Aspirin 325 mg PO BID 02/27/18 [History] Magnesium 250 mg PO DAILY 02/27/18 [History] Past Medical History HEENT History: Reports: Allergic Rhinitis, Cataract, Impaired Vision, Other ( See Below) 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 s/p ALIF 08-03-17 Neurological History: Reports: Concussion, Headaches, Chronic Psychiatric History: Reports: None Endocrine/Metabolic History: Reports: None Hematologic History: Reports: None Oncologic (Cancer) History: Reports: Breast Dermatologic History: Reports: None - Infectious Disease History Infectious Disease History: Reports: Chicken Pox, Measles, Mumps, Shingles - Past Surgical History Head Surgeries/Procedures: Reports: None HEENT Surgical History: Reports: Cataract Surgery, Other (See Below) Other HEENT Surgeries/Procedures: tumor removal Cardiovascular Surgical History: Reports: None Respiratory Surgical History: Reports: None GI Surgical History: Reports: Appendectomy, Colonoscopy, EGD, Polypectomy Female Surgical History: Reports: Breast Biopsy, Breast Reconstruction Endocrine Surgical History: Reports: None Neurological Surgical History: Reports: Other (See Below) Other Neurological Surgeries/Procedures: 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 Musculoskeletal Surgical History: Reports: Hip Replacement, Other (See Below) Other Musculoskeletal Surgeries/Procedures:: Back surgery Jul 2018 Oncologic Surgical History: Reports: Biopsy of Breast, Mastectomy Other Oncologic Surgeries/Procedures: left mast with lymph nodes right mast also Dermatological Surgical History: Reports: Plastic Surgical Reconstruction/Repair Social & Family History - Family History Family Medical History: Noncontributory - Tobacco Use Smoking Status *Q: Never Smoker Second Hand Smoke Exposure: No - Caffeine Use Caffeine Use: Reports: Coffee, Soda - Alcohol Use Days Per Week of Alcohol Use: 7 Number of Drinks Per Day: 1 Total Drinks Per Week: 7 - Recreational Drug Use Recreational Drug Use: No ED ROS GENERAL - Review of Systems Review Of Systems: See Below Constitutional: Reports: No Symptoms HEENT: Reports: No Symptoms Respiratory: Reports: No Symptoms Cardiovascular: Reports: No Symptoms GI/Abdominal: Reports: No Symptoms : Reports: No Symptoms Musculoskeletal: Reports: Other (hip pain since surgery) Skin: Reports: No Symptoms Neurological: Reports: Other (dizziness, sleepiness, less alert) ED EXAM, GENERAL - Physical Exam Exam: See Below General Appearance: Alert, WD/WN, No Apparent Distress Eye Exam: Bilateral Eye: Normal Inspection Ears: Normal External Exam, Normal Canal, Hearing Grossly Normal Ear Exam: Bilateral Ear: Auricle Normal, Canal Normal, TM normal Nose: Normal Inspection, Normal Mucosa Throat/Mouth: Normal Inspection, Normal Lips, Normal Oropharynx, Normal Voice Head: Atraumatic, Normocephalic Neck: Normal Inspection, Supple, Non-Tender Respiratory/Chest: No Respiratory Distress, Lungs Clear, Normal Breath Sounds, No Accessory Muscle Use Cardiovascular: Regular Rate, Rhythm GI/Abdominal: Normal Bowel Sounds, Soft, Non-Tender, No Distention Extremities: Normal Inspection, Normal Range of Motion, Non-Tender Neurological: Alert, Oriented, CN II-XII Intact, Normal Cognition, No Motor/ Sensory Deficits Psychiatric: Normal Affect, Normal Mood Skin Exam: Warm, Dry, Intact, Normal Color, No Rash Course - Vital Signs Last Recorded V/S: Last Vital Signs Temp 36.5 C 02/27/18 18:54 Pulse 60 02/27/18 18:54 Resp 18 02/27/18 18:54 BP 129/58 L 02/27/18 18:54 Pulse Ox 100 02/27/18 18:54 Departure - Departure Time of Disposition: 20:17 Disposition: Home, Self-Care 01 Condition: Good Clinical Impression: Sedated due to medication - Discharge Information Referrals: PCP,None [Primary Care Provider] -
== END 2018-02-27 20:45 | disposition home or self-care (01) ==
LOC: JP.ED 18:49
DX: R40.0 Somnolence (principal); T39.1X5A Adverse effect of 4-Aminophenol derivatives, initial encounter; I10 Essential (primary) hypertension; K21.9 Gastro-esophageal reflux disease without esophagitis; Z91.040 Latex allergy status; Z88.5 Allergy status to narcotic agent; Z79.82 Long term (current) use of aspirin; Z79.899 Other long term (current) drug therapy; Z96.649 Presence of unspecified artificial hip joint; Z88.8 Allergy status to other drugs, medicaments and biological substances
CPT/HCPCS: 99283

== ENCOUNTER 2018-04-24 13:56 | Emergency (ER) | payer MEDICARE, BC ==
--- NOTE | 2018-04-24 14:22 | EDM.PDOC ---
ED HPI GENERAL MEDICAL PROBLEM - General Chief Complaint: Laceration Stated Complaint: LACERATION ON RT LEG Time Seen by Provider: 04/24/18 14:05 Source of Information: Reports: Patient History Limitations: Reports: No Limitations - History of Present Illness INITIAL COMMENTS - FREE TEXT/NARRATIVE: 67-year-old female struck the anterior aspect of her lower leg against something in her basement sustaining a skin tear. She has a 3.5 x 3 centimeter triangular skin tear on the anterior aspect of the right leg. Onset: Sudden Duration: Hour(s): (Within the last couple hours) Location: Reports: Lower Extremity, Right Associated Symptoms: Denies: Fever/Chills, Nausea/Vomiting, Shortness of Breath - Related Data Allergies Allergy/AdvReac Type Severity Reaction Status Date / Time fenofibrate Allergy Rash Verified 04/24/18 14:12 glucosamine Allergy Rash Verified 04/24/18 14:12 latex Allergy Hives Verified 04/24/18 14:12 niacin Allergy Rash Verified 04/24/18 14:12 cortisone AdvReac Nausea and Verified 04/24/18 14:12 Vomiting morphine AdvReac Vomiting Verified 04/24/18 14:12 Aokvmzi-Hqh-Teu Reductase AdvReac Muscle Verified 04/24/18 14:12 Inhibitor Aches Home Meds: Home Meds Aspirin 81 mg PO DAILY 03/04/17 [History] Ca/D3/Mag#11/Zinc/Fan Balancer/Nadir/Bor [Caltrate 600+D Plus Tablet] 1 tab PO BID [History] Famotidine [Pepcid] 40 mg PO BEDTIME 03/04/17 [History] Metoprolol Tartrate [Lopressor] 25 mg PO BID 03/04/17 [History] tiZANidine HCl [Tizanidine HCl] 4 mg PO DAILY 05/06/17 [History] Loratadine [Claritin] 10 mg PO DAILY PRN 08/02/17 [History] Acetaminophen [Tylenol Extra Strength] 1,000 mg PO Q6H 08/03/17 [History] Acetaminophen/HYDROcodone [[place] 325-5 MG] 1 tab PO Q6H PRN 08/12/17 [History] Gabapentin [Neurontin] 100 mg PO TID #120 capsule 09/27/17 [Rx] Aspirin 325 mg PO BID 02/27/18 [History] Magnesium 250 mg PO DAILY 02/27/18 [History] Past Medical History HEENT History: Reports: Allergic Rhinitis, Cataract, Impaired Vision, Other ( See Below) 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 s/p ALIF 08-03-17 Neurological History: Reports: Concussion, Headaches, Chronic Psychiatric History: Reports: None Endocrine/Metabolic History: Reports: None Hematologic History: Reports: None Oncologic (Cancer) History: Reports: Breast Dermatologic History: Reports: None - Infectious Disease History Infectious Disease History: Reports: Chicken Pox, Measles, Mumps, Shingles - Past Surgical History Head Surgeries/Procedures: Reports: None HEENT Surgical History: Reports: Cataract Surgery, Other (See Below) Other HEENT Surgeries/Procedures: tumor removal Cardiovascular Surgical History: Reports: None Respiratory Surgical History: Reports: None GI Surgical History: Reports: Appendectomy, Colonoscopy, EGD, Polypectomy Female Surgical History: Reports: Breast Biopsy, Breast Reconstruction Endocrine Surgical History: Reports: None Neurological Surgical History: Reports: Other (See Below) Other Neurological Surgeries/Procedures: 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 Musculoskeletal Surgical History: Reports: Hip Replacement, Other (See Below) Other Musculoskeletal Surgeries/Procedures:: Back surgery Jul 2018 Oncologic Surgical History: Reports: Biopsy of Breast, Mastectomy Other Oncologic Surgeries/Procedures: left mast with lymph nodes right mast also Dermatological Surgical History: Reports: Plastic Surgical Reconstruction/Repair Social & Family History - Family History Family Medical History: Noncontributory - Tobacco Use Smoking Status *Q: Never Smoker - Caffeine Use Caffeine Use: Reports: Coffee, Soda ED ROS GENERAL - Review of Systems Review Of Systems: See Below Constitutional: Denies: Fever, Chills Respiratory: Denies: Shortness of Breath GI/Abdominal: Denies: Nausea, Vomiting Neurological: Reports: No Symptoms. Denies: Paresthesia ED EXAM, SKIN/RASH Exam: See Below Exam Limited By: No Limitations General Appearance: Alert, No Apparent Distress Head: Atraumatic Respiratory/Chest: No Respiratory Distress Extremities: Other (Patient has a 3 x 3.5 cm triangular skin tear on the anterior aspect of the right lower leg.) Course - Vital Signs Last Recorded V/S: Last Vital Signs Temp 98.2 F 04/24/18 14:19 Pulse 68 04/24/18 14:19 Resp 14 04/24/18 14:19 BP 125/74 04/24/18 14:19 Pulse Ox 98 04/24/18 14:19 - Re-Assessments/Exams Free Text/Narrative Re-Assessment/Exam: 04/24/18 14:21 The wound was cleaned, skin edges approximated and an OpSite was placed over the wound by nursing. She can recheck with Dr. King later this week. Departure - Departure Time of Disposition: 14:42 Disposition: Home, Self-Care 01 Condition: Good Clinical Impression: Noninfected skin tear of right leg Qualifiers: Encounter type: initial encounter Qualified Code(s): S81.811A - Laceration without foreign body, right lower leg, initial encounter - Discharge Information Instructions: Skin Tear Care, [id number] Referrals: Hernandez Cedneo MD [Primary Care Provider] - Forms: ED Department Discharge Care Plan Goals: Keep the wound covered and clean while healing, and consider rechecking with Dr. King at the clinic later this week.
[2018-04-24 14:23] VITALS: BP 125/74
== END 2018-04-24 14:43 | disposition home or self-care (01) ==
LOC: JP.ED 13:56
DX: S81.811A Laceration without foreign body, right lower leg, initial encounter (principal); I10 Essential (primary) hypertension; Z79.82 Long term (current) use of aspirin; Z88.8 Allergy status to other drugs, medicaments and biological substances; Z91.040 Latex allergy status; Z88.5 Allergy status to narcotic agent; W22.8XXA Striking against or struck by other objects, initial encounter
CPT/HCPCS: 12002; 99283-25

== ENCOUNTER 2019-02-27 23:28 | Emergency (ER) | payer MEDICARE, BC ==
[2019-02-27 23:34] VITALS: BP 116/71; PULSE 69
[2019-02-28] MEDS ORDERED: Ketorolac 30 MG/ML SDV IVPUSH ONE (00:05)
[2019-02-28] MEDS ORDERED: methylPREDNISolone Sodium Succinate 40 MG/1 ML SDV IVPUSH ONE (00:05)
[2019-02-28] MEDS ORDERED: Sodium Chloride 0.9% 10 ML Syringe FLUSH PRN (00:05)
--- NOTE | 2019-02-28 00:11 | EDM.PDOC ---
ED HPI GENERAL MEDICAL PROBLEM - General Chief Complaint: Headache Stated Complaint: MED[facility] Time Seen by Provider: 02/27/19 23:45 Source of Information: Reports: Patient, EMS History Limitations: Reports: No Limitations - History of Present Illness INITIAL COMMENTS - FREE TEXT/NARRATIVE: 68-year-old female with chronic headaches, also history of surgical removal of benign brain tumors, presents by ambulance because of slowly but persistently worrisome and painful left-sided headaches related to left-sided neck pain. No fevers or chills. Today she went to an exercise class and just felt "out of it" , and tonight felt like she just couldn't take it anymore because Tylenol wasn' t working. No peripheral neurologic symptoms or changes, no speech difficulties or vision complaints. She has a chronic peripheral vision loss but nothing new. She seems emotionally upset or depressed, and admits she is under a lot of stress. She does not take anti-inflammatories because she was told not to after her brain surgeries, however they were benign and a long time ago, I'm not sure why she wouldn't be able to use these. It seems the benefits would outweigh the risks. Onset: Gradual Duration: Chronic Location: Reports: Head, Neck Associated Symptoms: Reports: Weakness. Denies: Confusion, Chest Pain, Diaphoresis Headache Pain Score (Numeric/FACES): 8 - Related Data Allergies Allergy/AdvReac Type Severity Reaction Status Date / Time fenofibrate Allergy Rash Verified 02/27/19 23:35 glucosamine Allergy Rash Verified 02/27/19 23:35 latex Allergy Hives Verified 02/27/19 23:35 niacin Allergy Rash Verified 02/27/19 23:35 cortisone AdvReac Nausea and Verified 02/27/19 23:35 Vomiting morphine AdvReac Vomiting Verified 02/27/19 23:35 Cucbtjf-Yhj-Qkf Reductase AdvReac Muscle Verified 02/27/19 23:35 Inhibitor Aches Home Meds: Home Meds Aspirin 81 mg PO DAILY 03/04/17 [History] Ca/D3/Mag#11/Zinc/Starting Gate Driver/Nadir/Bor [Caltrate 600+D Plus Tablet] 1 tab PO BID [History] Famotidine [Pepcid] 40 mg PO BEDTIME 03/04/17 [History] Metoprolol Tartrate [Lopressor] 25 mg PO BID 03/04/17 [History] Loratadine [Claritin] 10 mg PO DAILY PRN 08/02/17 [History] Acetaminophen [Tylenol Extra Strength] 1,000 mg PO Q6H 08/03/17 [History] Gabapentin [Neurontin] 100 mg PO TID #120 capsule 09/27/17 [Rx] Past Medical History HEENT History: Reports: Allergic Rhinitis, Cataract, Impaired Vision, Other ( See Below) 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 s/p ALIF 08-03-17 Neurological History: Reports: Concussion, Headaches, Chronic Psychiatric History: Reports: None Endocrine/Metabolic History: Reports: None Hematologic History: Reports: None Oncologic (Cancer) History: Reports: Breast Dermatologic History: Reports: None - Infectious Disease History Infectious Disease History: Reports: Chicken Pox, Measles, Mumps, Shingles - Past Surgical History Head Surgeries/Procedures: Reports: None HEENT Surgical History: Reports: Cataract Surgery, Other (See Below) Other HEENT Surgeries/Procedures: tumor removal Cardiovascular Surgical History: Reports: None Respiratory Surgical History: Reports: None GI Surgical History: Reports: Appendectomy, Colonoscopy, EGD, Polypectomy Female Surgical History: Reports: Breast Biopsy, Breast Reconstruction Endocrine Surgical History: Reports: None Neurological Surgical History: Reports: Other (See Below) Other Neurological Surgeries/Procedures: 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 at [facility] Musculoskeletal Surgical History: Reports: Hip Replacement, Other (See Below) Other Musculoskeletal Surgeries/Procedures:: Back surgery Jul 2018 Oncologic Surgical History: Reports: Biopsy of Breast, Mastectomy Other Oncologic Surgeries/Procedures: left mast with lymph nodes right mast also Dermatological Surgical History: Reports: Plastic Surgical Reconstruction/Repair Social & Family History - Family History Family Medical History: Noncontributory - Tobacco Use Smoking Status *Q: Former Smoker Used Tobacco, but Quit: Yes Month/Year Tobacco Last Used: 28 years - Caffeine Use Caffeine Use: Reports: Coffee - Recreational Drug Use Recreational Drug Use: No ED ROS GENERAL - Review of Systems Review Of Systems: See Below Constitutional: Reports: Malaise. Denies: Fever, Chills HEENT: Reports: Sinus Problem (Feels like the pain is located around her left face and sinuses.). Denies: Vision Change Respiratory: Reports: No Symptoms Cardiovascular: Reports: No Symptoms GI/Abdominal: Denies: Nausea, Vomiting Skin: Denies: Rash Neurological: Reports: Dizziness, Headache - Physical Exam Exam: See Below Exam Limited By: No Limitations General Appearance: Alert, No Apparent Distress, Other (Very emotional, tearful) Eye Exam: Bilateral Eye: EOMI Head Exam: Atraumatic Neck: Other (Tender to palpation along the left para cervical muscles, increased pain with rotation of the neck to the left) Respiratory/Chest: No Respiratory Distress Neuro Exam (Abbreviated): Alert, Oriented, No Motor/Sensory Deficits Course - Vital Signs Last Recorded V/S: Last Vital Signs Temp 97.5 F 02/27/19 23:30 Pulse 69 02/27/19 23:30 Resp 16 02/27/19 23:30 BP 116/71 02/27/19 23:30 Pulse Ox 95 02/27/19 23:30 - Orders/Labs/Meds Orders: Active Orders 24 hr Category Date Time Status Saline Lock Insert [OM.PC] Routine Oth 02/28/19 00:05 Ordered Meds: Medications Discontinued Medications Generic Name Dose Route Start Last Admin Trade Name Ronenq PRN Reason Stop Dose Admin Ketorolac Tromethamine 30 mg 02/28/19 00:05 02/28/19 00:15 Toradol IVPUSH 02/28/19 00:06 30 mg ONETIME ONE Administration Methylprednisolone Sodium Succinate 40 mg 02/28/19 00:05 02/28/19 00:18 Solu-Medrol IVPUSH 02/28/19 00:06 40 mg ONETIME ONE Administration Sodium Chloride 10 ml 02/28/19 00:05 02/28/19 00:20 Saline Flush FLUSH 10 ml ASDIRECTED PRN Administration Keep Vein Open - Re-Assessments/Exams Free Text/Narrative Re-Assessment/Exam: 02/28/19 00:10 Saline lock was started, the patient was given 40 mg of IV Solu-Medrol and 30 mg of IV Toradol. I think she would be a very good candidate for local injections from the pain clinic provided by the [employer] [facility] at [facility]. She has an appointment with Dr. Cedeno in a few days, she can possibly discuss this with him at that time. 02/28/19 00:52 Patient rested quietly for one hour after the medications were given. She then had much less discomfort in her neck and less headache, she was able to move much more freely, sat up and rotate her neck without significant pain. She was encouraged to try a regular anti-inflammatory over the next several days and also given some Flexeril for muscle relaxation when she is trying to rest. Continue with her other medications and keep her appointment with her primary provider. Departure - Departure Time of Disposition: 01:23 Disposition: Home, Self-Care 01 Clinical Impression: Tension-type headache - Discharge Information Instructions: Tension Headache, Adult, [id number] Referrals: PCP,None [Primary Care Provider] - Forms: ED Department Discharge Care Plan Goals: Continue your regular medications along with adding a regular anti-inflammatory such as naproxen or ibuprofen for the next several days. Muscle relaxers can be used as prescribed for rest or muscle spasm. Recheck next week as scheduled, or return sooner if worsening such as fever or increased headaches despite medication changes. - My Orders Last 24 Hours: My Active Orders 02/28/19 00:05 Saline Lock Insert [OM.PC] Routine - Assessment/Plan Last 24 Hours: My Active Orders 02/28/19 00:05 Saline Lock Insert [OM.PC] Routine
== END 2019-02-28 01:23 | disposition home or self-care (01) ==
LOC: JP.ED 23:31
DX: G44.209 Tension-type headache, unspecified, not intractable (principal); E78.00 Pure hypercholesterolemia, unspecified; I10 Essential (primary) hypertension; Z79.82 Long term (current) use of aspirin; Z79.899 Other long term (current) drug therapy; Z88.8 Allergy status to other drugs, medicaments and biological substances
CPT/HCPCS: 96374; 96375; 99283; J1885; J2920; 99284

== ENCOUNTER 2019-04-02 06:58 | Emergency (ER) | payer MEDICARE, BC ==
[2019-04-02 07:14] VITALS: BP 141/81; PULSE 72
[2019-04-02] MEDS ORDERED: Bacitracin Oint 1 GM U/D Packet TOP ONE (07:21)
--- NOTE | 2019-04-02 07:26 | EDM.PDOC ---
ED HPI GENERAL MEDICAL PROBLEM - General Chief Complaint: Skin Complaint Stated Complaint: RT LEG LACERATION Time Seen by Provider: 04/02/19 07:15 Source of Information: Reports: Patient, Old Records History Limitations: Reports: No Limitations - History of Present Illness INITIAL COMMENTS - FREE TEXT/NARRATIVE: 68 yo female here with a skin tear from yesterday morning. Was unable to get her gauze dressing off this am so came to the ER. Is UTD on her tetanus. 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: Other (see below) (dressing) Right Lower Leg Pain Score (Numeric/FACES): 2 - Related Data Allergies Allergy/AdvReac Type Severity Reaction Status Date / Time fenofibrate Allergy Rash Verified 04/02/19 07:15 glucosamine Allergy Rash Verified 04/02/19 07:15 latex Allergy Hives Verified 04/02/19 07:15 niacin Allergy Rash Verified 04/02/19 07:15 cortisone AdvReac Nausea and Verified 04/02/19 07:15 Vomiting morphine AdvReac Vomiting Verified 04/02/19 07:15 Jxyevcw-Gdi-Xxg Reductase AdvReac Muscle Verified 04/02/19 07:15 Inhibitor Aches Home Meds: Home Meds Aspirin 81 mg PO DAILY 03/04/17 [History] Ca/D3/Mag#11/Zinc/Garage Door Installer/Nadir/Bor [Caltrate 600+D Plus Tablet] 1 tab PO BID [History] Famotidine [Pepcid] 40 mg PO BEDTIME 03/04/17 [History] Metoprolol Tartrate [Lopressor] 25 mg PO BID 03/04/17 [History] Loratadine [Claritin] 10 mg PO DAILY PRN 08/02/17 [History] Acetaminophen [Tylenol Extra Strength] 1,000 mg PO Q6H 08/03/17 [History] Gabapentin [Neurontin] 100 mg PO TID #120 capsule 09/27/17 [Rx] Ibuprofen 200 mg PO TID 04/02/19 [History] Past Medical History HEENT History: Reports: Allergic Rhinitis, Cataract, Impaired Vision, Other ( See Below) 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 s/p ALIF 08-03-17 Neurological History: Reports: Concussion, Headaches, Chronic Psychiatric History: Reports: None Endocrine/Metabolic History: Reports: None Hematologic History: Reports: None Immunologic History: Reports: None Oncologic (Cancer) History: Reports: Breast Dermatologic History: Reports: None - Infectious Disease History Infectious Disease History: Reports: Chicken Pox, Measles, Mumps, Shingles - Past Surgical History Head Surgeries/Procedures: Reports: None HEENT Surgical History: Reports: Cataract Surgery, Other (See Below) Other HEENT Surgeries/Procedures: tumor removal Cardiovascular Surgical History: Reports: None Respiratory Surgical History: Reports: None GI Surgical History: Reports: Appendectomy, Colonoscopy, EGD, Polypectomy Female Surgical History: Reports: Breast Biopsy, Breast Reconstruction Endocrine Surgical History: Reports: None Neurological Surgical History: Reports: Other (See Below) Other Neurological Surgeries/Procedures: 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 at [facility] Musculoskeletal Surgical History: Reports: Hip Replacement, Other (See Below) Other Musculoskeletal Surgeries/Procedures:: Back surgery Jul 2018 Oncologic Surgical History: Reports: Biopsy of Breast, Mastectomy Other Oncologic Surgeries/Procedures: left mast with lymph nodes right mast also Dermatological Surgical History: Reports: Plastic Surgical Reconstruction/Repair Social & Family History - Family History Family Medical History: Noncontributory - Tobacco Use Smoking Status *Q: Former Smoker Used Tobacco, but Quit: Yes Month/Year Tobacco Last Used: 1994 - Caffeine Use Caffeine Use: Reports: Coffee, Tea - Alcohol Use Days Per Week of Alcohol Use: 7 Number of Drinks Per Day: 1 Total Drinks Per Week: 7 - Recreational Drug Use Recreational Drug Use: No ED ROS GENERAL - Review of Systems Review Of Systems: See Below Constitutional: Reports: No Symptoms Skin: Reports: Wound (skin tear R ant leg) Neurological: Reports: No Symptoms ED EXAM, SKIN/RASH Exam: See Below Exam Limited By: No Limitations General Appearance: Alert, WD/WN, No Apparent Distress Extremities: Other (wound R leg) Neurological: Alert, Oriented, CN II-XII Intact, Normal Cognition, No Motor/ Sensory Deficits Psychiatric: Normal Affect, Normal Mood Skin: Warm, Dry, Normal Color, No Rash, Wound/Incision (skin tear R ant wilson area, about 8 x 3 cm) Location, Skin: Lower Extremity, Right Characteristics: Other (skin flap) Associated features: Tenderness. No: Warmth, Swelling, Induration, Lymphangitis , Inflammation Course - Vital Signs Text/Narrative:: Cleaned and dressed by nursing. Last Recorded V/S: Last Vital Signs Temp 35.8 C 04/02/19 07:18 Pulse 72 04/02/19 07:18 Resp 13 04/02/19 07:18 BP 141/81 H 04/02/19 07:18 Pulse Ox 97 04/02/19 07:18 Departure - Departure Time of Disposition: 07:30 Disposition: Home, Self-Care 01 Condition: Good Clinical Impression: Skin tear of lower leg without complication Qualifiers: Encounter type: initial encounter Laterality: right Qualified Code(s): S81.811A - Laceration without foreign body, right lower leg, initial encounter - Discharge Information *PRESCRIPTION DRUG MONITORING PROGRAM REVIEWED*: No *COPY OF PRESCRIPTION DRUG MONITORING REPORT IN PATIENT JEFFRY: No Instructions: Skin Tear Care, [id number] Referrals: Hernandez Cedeno MD [Primary Care Provider] - Additional Instructions: Watch for an report signs of infection. Acetaminophen as needed for pain relief. Keep wound clean. Apply Bactracin twice daily starting tomorrow am. Wash with soap and water or 1/2 water and 1/2 peroxide.
== END 2019-04-02 07:36 | disposition home or self-care (01) ==
LOC: JP.ED 06:58
DX: S81.811A Laceration without foreign body, right lower leg, initial encounter (principal); I10 Essential (primary) hypertension; M19.90 Unspecified osteoarthritis, unspecified site; Z90.49 Acquired absence of other specified parts of digestive tract; Z79.82 Long term (current) use of aspirin; Z88.5 Allergy status to narcotic agent; Z88.8 Allergy status to other drugs, medicaments and biological substances; Z98.49 Cataract extraction status, unspecified eye; Z91.040 Latex allergy status; Z87.891 Personal history of nicotine dependence; X58.XXXA Exposure to other specified factors, initial encounter
CPT/HCPCS: 99281; 99282

== ENCOUNTER 2019-05-28 13:00 | Emergency (ER) | payer MEDICARE, BC ==
[2019-05-28 13:51] VITALS: BP 127/71; PULSE 60
--- NOTE | 2019-05-28 14:36 | EDM.PDOC ---
ED HPI GENERAL MEDICAL PROBLEM - General Chief Complaint: Allergic Reaction Stated Complaint: DIZZINESS, HEART BURN, SHAKES Time Seen by Provider: 05/28/19 14:00 Source of Information: Reports: Patient History Limitations: Reports: No Limitations - History of Present Illness INITIAL COMMENTS - FREE TEXT/NARRATIVE: 69 yo who presents with concerns of upset stomach and nausea, as well as persistent UTI symptoms. She has a history of frequent UTIs. She was seen in the clinic 3 days ago for this and prescribed cipro - this is a new drug for her. She reports since starting this her frequency and dysuria have improved, but now she is having upset stomach and nausea. She does notice a persistent cloud color to her urine. She is not having any fevers, flank or abdominal pain. - Related Data Allergies Allergy/AdvReac Type Severity Reaction Status Date / Time fenofibrate Allergy Rash Verified 05/28/19 13:52 glucosamine Allergy Rash Verified 05/28/19 13:52 latex Allergy Hives Verified 05/28/19 13:52 niacin Allergy Rash Verified 05/28/19 13:52 cortisone AdvReac Nausea and Verified 05/28/19 13:52 Vomiting morphine AdvReac Vomiting Verified 05/28/19 13:52 Bbkrwvd-Rbp-Ctj Reductase AdvReac Muscle Verified 05/28/19 13:52 Inhibitor Aches Home Meds: Home Meds Aspirin 81 mg PO DAILY 03/04/17 [History] Ca/D3/Mag#11/Zinc/Manager Medical Affairs/Nadir/Bor [Caltrate 600+D Plus Tablet] 1 tab PO BID [History] Famotidine [Pepcid] 40 mg PO BEDTIME 03/04/17 [History] Metoprolol Tartrate [Lopressor] 25 mg PO BID 03/04/17 [History] Loratadine [Claritin] 10 mg PO DAILY PRN 08/02/17 [History] Acetaminophen [Tylenol Extra Strength] 1,000 mg PO Q6H 08/03/17 [History] Gabapentin [Neurontin] 100 mg PO TID #120 capsule 09/27/17 [Rx] Ibuprofen 200 mg PO TID 04/02/19 [History] Ciprofloxacin [Ciprofloxacin HCl] 1 tab PO BID 05/28/19 [History] Past Medical History HEENT History: Reports: Allergic Rhinitis, Cataract, Impaired Vision, Other ( See Below) 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 s/p ALIF 08-03-17 Neurological History: Reports: Concussion, Headaches, Chronic Psychiatric History: Reports: None Endocrine/Metabolic History: Reports: None Hematologic History: Reports: None Immunologic History: Reports: None Oncologic (Cancer) History: Reports: Breast Dermatologic History: Reports: None - Infectious Disease History Infectious Disease History: Reports: Chicken Pox, Measles, Mumps, Shingles - Past Surgical History Head Surgeries/Procedures: Reports: None HEENT Surgical History: Reports: Cataract Surgery, Other (See Below) Other HEENT Surgeries/Procedures: tumor removal Cardiovascular Surgical History: Reports: None Respiratory Surgical History: Reports: None GI Surgical History: Reports: Appendectomy, Colonoscopy, EGD, Polypectomy Female Surgical History: Reports: Breast Biopsy, Breast Reconstruction Endocrine Surgical History: Reports: None Neurological Surgical History: Reports: Other (See Below) Other Neurological Surgeries/Procedures: 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 at [facility] Musculoskeletal Surgical History: Reports: Hip Replacement, Other (See Below) Other Musculoskeletal Surgeries/Procedures:: Back surgery Jul 2018 Oncologic Surgical History: Reports: Biopsy of Breast, Mastectomy Other Oncologic Surgeries/Procedures: left mast with lymph nodes right mast also Dermatological Surgical History: Reports: Plastic Surgical Reconstruction/Repair Social & Family History - Family History Family Medical History: Noncontributory - Tobacco Use Smoking Status *Q: Never Smoker - Caffeine Use Caffeine Use: Reports: Coffee, Tea ED ROS ALLERGIC REACTION - Review of Systems Review Of Systems: See Below Constitutional: Reports: No Symptoms. Denies: Fever, Chills HEENT: Reports: No Symptoms Respiratory: Reports: No Symptoms Cardiovascular: Reports: No Symptoms Endocrine: Reports: No Symptoms GI/Abdominal: Reports: Nausea : Reports: Other (cloudy urine). Denies: Dysuria, Flank Pain, Frequency Musculoskeletal: Reports: No Symptoms Skin: Reports: No Symptoms Neurological: Reports: No Symptoms Psychiatric: Reports: No Symptoms Hematologic/Lymphatic: Reports: No Symptoms Immunologic: Reports: No Symptoms ED EXAM GENERAL NO PERIP PULSE - Physical Exam Exam: See Below Exam Limited By: Uncooperative General Appearance: No Apparent Distress Ears: Normal External Exam Nose: Normal Inspection Throat/Mouth: Normal Inspection Head: Atraumatic, Normocephalic Neck: Normal Inspection Respiratory/Chest: Lungs Clear Cardiovascular: Regular Rate, Rhythm GI/Abdominal: Soft, Non-Tender, No Distention Back Exam: Normal Inspection. No: CVA Tenderness (R), CVA Tenderness (L) Extremities: Normal Inspection Neurological: Alert, Oriented Psychiatric: Normal Affect, Normal Mood Skin Exam: Warm, Dry Course - Vital Signs Last Recorded V/S: Last Vital Signs Temp 37.3 C 05/28/19 13:57 Pulse 60 05/28/19 13:57 Resp 17 05/28/19 13:57 BP 127/71 05/28/19 13:57 Pulse Ox 98 05/28/19 13:57 - Re-Assessments/Exams Free Text/Narrative Re-Assessment/Exam: 69 yo presents with resolving UTI symptoms, but nausea and stomach discomfort that she is concerned is an adverse reaction to cipro I reviewed her prior culture data from last month, previous bacteria was sensitive to bactrim and she has tolerated this well in the past Although her symptoms are improving she continues to have cloudy urine, typically is treated for UTI for 7 days, so we will narrow her to bactrim for the remainder of her 7 day course. She has no symptoms to suggest ascending infection. Will f/u with PCP prn. 05/28/19 14:45 Departure - Departure Time of Disposition: 14:34 Disposition: Home, Self-Care 01 Clinical Impression: UTI (urinary tract infection) Qualifiers: Urinary tract infection type: acute cystitis Hematuria presence: without hematuria Qualified Code(s): N30.00 - Acute cystitis without hematuria - Discharge Information Instructions: Urinary Tract Infection, Adult, [id number] Referrals: Hernandez Cedeno MD [Primary Care Provider] - Forms: ED Department Discharge Additional Instructions: Please take the prescribed antibiotics for 4 days to complete 7 days of antibiotics Follow up in your PCP's clinic as needed Return to the ER for worsening fevers, pain (particularly in the flank) or other symptoms which are concerning to you.
== END 2019-05-28 14:42 | disposition home or self-care (01) ==
LOC: JP.ED 13:00
DX: N30.00 Acute cystitis without hematuria (principal); I10 Essential (primary) hypertension; K21.9 Gastro-esophageal reflux disease without esophagitis; I82.409 Acute embolism and thrombosis of unspecified deep veins of unspecified lower extremity; Z79.82 Long term (current) use of aspirin; Z88.5 Allergy status to narcotic agent; Z88.8 Allergy status to other drugs, medicaments and biological substances; Z91.040 Latex allergy status
CPT/HCPCS: 99283

== ENCOUNTER 2019-11-02 19:36 | Emergency (ER) | payer MEDICARE, BC ==
--- NOTE | 2019-11-02 20:12 | EDM.PDOC ---
ED HPI GENERAL MEDICAL PROBLEM - General Chief Complaint: General Stated Complaint: LIGHTHEADED,DISORIENTED, OFF BALANCE Time Seen by Provider: 11/02/19 20:00 Source of Information: Reports: Patient History Limitations: Reports: No Limitations - History of Present Illness INITIAL COMMENTS - FREE TEXT/NARRATIVE: 69-year-old female drove herself and with several complaints. She has chronic daily headaches, she has some knee pain, she feels dizzy and confused. None of her symptoms are acute. Onset: Unknown/Unsure (Headache symptoms are chronic, her knee pain is been for 6 days) Left Knee Pain Score (Numeric/FACES): 4 - Related Data Allergies Allergy/AdvReac Type Severity Reaction Status Date / Time fenofibrate Allergy Rash Verified 11/02/19 20:07 glucosamine Allergy Rash Verified 11/02/19 20:07 latex Allergy Hives Verified 11/02/19 20:07 niacin Allergy Rash Verified 11/02/19 20:07 cortisone AdvReac Nausea and Verified 11/02/19 20:07 Vomiting morphine AdvReac Vomiting Verified 11/02/19 20:07 [id number] Reductase AdvReac Muscle Verified 11/02/19 20:07 Inhibitor Aches Home Meds: Home Meds Aspirin 81 mg PO DAILY 03/04/17 [History] Fritz/D3/Mag11/Zinc/Pre School Manager/Nadir/Bor [Caltrate 600+D Plus Tablet] 1 tab PO BID [History] Famotidine [Pepcid] 40 mg PO BEDTIME 03/04/17 [History] Metoprolol Tartrate [Lopressor] 25 mg PO BID 03/04/17 [History] Loratadine [Claritin] 10 mg PO DAILY PRN 08/02/17 [History] Acetaminophen [Tylenol Extra Strength] 1,000 mg PO Q6H 08/03/17 [History] Gabapentin [Neurontin] 100 mg PO TID #120 capsule 09/27/17 [Rx] Ibuprofen 200 mg PO TID 04/02/19 [History] Past Medical History HEENT History: Reports: Allergic Rhinitis, Cataract, Impaired Vision, Other ( See Below) 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 s/p ALIF 08-03-17 Neurological History: Reports: Concussion, Headaches, Chronic Psychiatric History: Reports: None Endocrine/Metabolic History: Reports: None Hematologic History: Reports: None Immunologic History: Reports: None Oncologic (Cancer) History: Reports: Breast Dermatologic History: Reports: None - Infectious Disease History Infectious Disease History: Reports: Chicken Pox, Measles, Mumps, Shingles - Past Surgical History Head Surgeries/Procedures: Reports: None HEENT Surgical History: Reports: Cataract Surgery, Other (See Below) Other HEENT Surgeries/Procedures: tumor removal Cardiovascular Surgical History: Reports: None Respiratory Surgical History: Reports: None GI Surgical History: Reports: Appendectomy, Colonoscopy, EGD, Polypectomy Female Surgical History: Reports: Breast Biopsy, Breast Reconstruction Endocrine Surgical History: Reports: None Neurological Surgical History: Reports: Other (See Below) Other Neurological Surgeries/Procedures: 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 at [facility] Musculoskeletal Surgical History: Reports: Hip Replacement, Other (See Below) Other Musculoskeletal Surgeries/Procedures:: Back surgery Jul 2018 Oncologic Surgical History: Reports: Biopsy of Breast, Mastectomy Other Oncologic Surgeries/Procedures: left mast with lymph nodes right mast also Dermatological Surgical History: Reports: Plastic Surgical Reconstruction/Repair Social & Family History - Family History Family Medical History: Noncontributory - Caffeine Use Caffeine Use: Reports: Coffee, Tea ED ROS GENERAL - Review of Systems Review Of Systems: See Below Constitutional: Denies: Fever, Chills, Malaise HEENT: Reports: Other (Last week she had an eye exam for 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 Denies: Chest Pain GI/Abdominal: Denies: Abdominal Pain, Nausea, Vomiting Musculoskeletal: Reports: No Symptoms Skin: Denies: Bruising Neurological: Reports: Dizziness, Headache, Other (Feels unsteady) ED EXAM, GENERAL - Physical Exam Exam: See Below Exam Limited By: No Limitations General Appearance: Alert, No Apparent Distress Eye Exam: Bilateral Eye: EOMI Throat/Mouth: Normal Inspection Head: Atraumatic Neck: Other (Some discomfort with palpation of the upper paracervical muscles) Respiratory/Chest: No Respiratory Distress, Lungs Clear Cardiovascular: Regular Rate, Rhythm GI/Abdominal: Non-Tender Extremities: Other (Some tenderness with palpation around the patella of the left, no effusion) Neurological: Alert, Oriented, No Motor/Sensory Deficits Psychiatric: Flat Affect Skin Exam: Warm, Dry Course - Vital Signs Last Recorded V/S: Last Vital Signs Temp 97.5 F 11/02/19 20:08 Pulse 70 11/02/19 21:11 Resp 16 11/02/19 20:08 BP 116/63 11/02/19 21:11 Pulse Ox 94 L 11/02/19 20:36 - Orders/Labs/Meds Orders: Active Orders 24 hr Category Date Time Status Knee 3V Lt [CR] Stat Exams 11/02/19 20:29 Taken Meds: Medications Discontinued Medications Generic Name Dose Route Start Last Admin Trade Name Rick PRN Reason Stop Dose Admin Ketorolac Tromethamine 60 mg 11/02/19 20:29 11/02/19 20:52 Toradol IM 11/02/19 20:30 60 mg ONETIME ONE Administration - Re-Assessments/Exams Free Text/Narrative Re-Assessment/Exam: 11/02/19 21:23 Left knee x-ray was taken after the patient was given 60 mg of IM Toradol. Her previous records were reviewed, I saw this patient last February with almost identical complaints and she responded well to Toradol. After reviewing the knee x-ray and discussing its result, she admitted she was feeling better. She was given 10 additional doses of 10 mg Toradol to take twice daily until her neurology appointment next Wednesday. Departure - Departure Time of Disposition: 21:27 Disposition: Home, Self-Care 01 Clinical Impression: Chronic daily headache Strain of left knee Qualifiers: Encounter type: initial encounter Qualified Code(s): S86.912A - Strain of unspecified muscle(s) and tendon(s) at lower leg level, left leg, initial encounter - Discharge Information Instructions: General Headache Without Cause, [id number] Referrals: Hernandez Cedeno MD [Primary Care Provider] - Forms: ED Department Discharge Care Plan Goals: Try your dose of Toradol twice daily as prescribed and continue your other medications. Increase activity as tolerated on your left knee and recheck next week with orthopedics if not improving satisfactorily. Keep your appointment with neurology as scheduled. Sepsis Event Note - Focused Exam Vital Signs: Vital Signs Temp Pulse Resp BP Pulse Ox 11/02/19 21:11 70 116/63 11/02/19 20:36 77 132/79 94 L 11/02/19 20:08 97.5 F 77 16 139/76 96 11/02/19 19:52 97.5 F 77 16 139/76 96 Date Exam was Performed: 11/02/19 Time Exam was Performed: 22:37 - My Orders Last 24 Hours: My Active Orders 11/02/19 20:29 Knee 3V Lt [CR] Stat - Assessment/Plan Last 24 Hours: My Active Orders 11/02/19 20:29 Knee 3V Lt [CR] Stat
[2019-11-02] MEDS ORDERED: Ketorolac 60 MG/2 ML SDV IM ONE (20:29)
[2019-11-02 21:12] VITALS: BP 116/63; PULSE 70
--- NOTE | 2019-11-03 08:58 | CR ---
Knee 3V Lt CLINICAL HISTORY: Pain FINDINGS: No acute fracture or dislocation is noted. There are no osseous lesions. There is significant joint space narrowing medial compartment. There is prominence of the intercondylar eminence. There is periarticular patellar spurring. There are ossific densities in the region of the suprapatellar bursa which are suspect for loose bodies. Impression: Severe osteoarthritic change Probable small loose bodies in the suprapatellar bursa
== END 2019-11-02 21:35 | disposition home or self-care (01) ==
LOC: JP.ED 19:36
DX: S86.912A Strain of unspecified muscle(s) and tendon(s) at lower leg level, left leg, initial encounter (principal); R51 Headache; E78.00 Pure hypercholesterolemia, unspecified; I10 Essential (primary) hypertension; K21.9 Gastro-esophageal reflux disease without esophagitis; Z88.8 Allergy status to other drugs, medicaments and biological substances; Z91.040 Latex allergy status; Z88.5 Allergy status to narcotic agent; Z79.82 Long term (current) use of aspirin; Z79.899 Other long term (current) drug therapy; Z85.3 Personal history of malignant neoplasm of breast; X58.XXXA Exposure to other specified factors, initial encounter
CPT/HCPCS: 73562; 96372; 99284; J1885; 99283

== ENCOUNTER 2020-01-15 07:42 | Emergency (ER) | payer MEDICARE, BC ==
--- NOTE | 2020-01-15 08:17 | EDM.PDOC ---
ED HPI GENERAL MEDICAL PROBLEM - General Chief Complaint: General Stated Complaint: MEDICAL VIA [facility] Time Seen by Provider: 01/15/20 08:00 Source of Information: Reports: Patient, EMS History Limitations: Reports: No Limitations - History of Present Illness INITIAL COMMENTS - FREE TEXT/NARRATIVE: 69-year-old female brought in by ambulance because of profound fatigue, dizziness and weakness. Her symptoms have started since starting topiramate for chronic headaches by neurology 3 days ago. This morning she felt so weak she could hardly get out of bed so called the ambulance. Her vitals are completely stable. She does think her headaches may have improved over the weekend but she has some intermittent facial numbness and tingling which also worried her. Onset: Unknown/Unsure (Symptoms have been waxing and waning over the last 2 to 3 days) Location: Reports: Generalized Associated Symptoms: Reports: Other (Intermittent paresthesias of the face) Headache Pain Score (Numeric/FACES): 8 - Related Data Allergies Allergy/AdvReac Type Severity Reaction Status Date / Time fenofibrate Allergy Rash Verified 01/15/20 07:47 glucosamine Allergy Rash Verified 01/15/20 07:47 latex Allergy Hives Verified 01/15/20 07:47 niacin Allergy Rash Verified 01/15/20 07:47 cortisone AdvReac Nausea and Verified 01/15/20 07:47 Vomiting morphine AdvReac Vomiting Verified 01/15/20 07:47 [id number] Reductase AdvReac Muscle Verified 01/15/20 07:47 Inhibitor Aches Home Meds: Home Meds Aspirin 81 mg PO DAILY 03/04/17 [History] Fritz/D3/Mag11/Zinc/Wire Brusher/Nadir/Bor [Caltrate 600+D Plus Tablet] 1 tab PO BID [History] Famotidine [Pepcid] 40 mg PO BID 03/04/17 [History] Metoprolol Tartrate [Lopressor] 25 mg PO BID 03/04/17 [History] Loratadine [Claritin] 10 mg PO DAILY PRN 08/02/17 [History] Acetaminophen [Tylenol Extra Strength] 1,000 mg PO Q6H 08/03/17 [History] Gabapentin [Neurontin] 100 mg PO BID 01/15/20 [History] Gabapentin [Neurontin] 200 mg PO BEDTIME 01/15/20 [History] SUMAtriptan [Imitrex] 50 mg PO ASDIRECTED 01/15/20 [History] Topiramate 25 mg PO DAILY 01/15/20 [History] Past Medical History HEENT History: Reports: Allergic Rhinitis, Cataract, Impaired Vision, Other ( See Below) 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 s/p ALIF 08-03-17 Neurological History: Reports: Concussion, Headaches, Chronic, Migraines Psychiatric History: Reports: None Endocrine/Metabolic History: Reports: None Hematologic History: Reports: None Immunologic History: Reports: None Oncologic (Cancer) History: Reports: Breast Dermatologic History: Reports: None - Infectious Disease History Infectious Disease History: Reports: Chicken Pox, Measles, Mumps, Shingles - Past Surgical History Head Surgeries/Procedures: Reports: None HEENT Surgical History: Reports: Cataract Surgery, Other (See Below) Other HEENT Surgeries/Procedures: tumor removal GI Surgical History: Reports: Appendectomy, Colonoscopy, EGD, Polypectomy Female Surgical History: Reports: Breast Biopsy, Breast Reconstruction Neurological Surgical History: Reports: Other (See Below) Other Neurological Surgeries/Procedures: 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 at [facility] Musculoskeletal Surgical History: Reports: Hip Replacement, Other (See Below) Other Musculoskeletal Surgeries/Procedures:: Back surgery Jul 2018 Oncologic Surgical History: Reports: Biopsy of Breast, Mastectomy Other Oncologic Surgeries/Procedures: left mast with lymph nodes right mast also Dermatological Surgical History: Reports: Plastic Surgical Reconstruction/Repair Social & Family History - Family History Family Medical History: Noncontributory - Tobacco Use Smoking Status *Q: Never Smoker - Caffeine Use Caffeine Use: Reports: Coffee - Alcohol Use Days Per Week of Alcohol Use: 7 Number of Drinks Per Day: 1 Total Drinks Per Week: 7 - Recreational Drug Use Recreational Drug Use: No ED ROS GENERAL - Review of Systems Review Of Systems: See Below Constitutional: Reports: Malaise. Denies: Fever, Chills HEENT: Denies: Vision Change Respiratory: Denies: Shortness of Breath Cardiovascular: Denies: Chest Pain Endocrine: Reports: Fatigue GI/Abdominal: Denies: Nausea, Vomiting Musculoskeletal: Reports: Other (Chronic knee pain) Skin: Reports: No Symptoms Neurological: Reports: Headache (Mild headache over the past 3 days), Paresthesia (Facial paresthesias bilateral and intermittent, waxing and waning) ED EXAM, GENERAL - Physical Exam Exam: See Below Exam Limited By: No Limitations General Appearance: Alert, No Apparent Distress Eye Exam: Bilateral Eye: EOMI, Normal Inspection, PERRL Head: Atraumatic Respiratory/Chest: No Respiratory Distress, Lungs Clear Cardiovascular: Regular Rate, Rhythm Extremities: Normal Inspection Neurological: Alert, Oriented, No Motor/Sensory Deficits (Facial muscles are symmetric, no peripheral weakness, no aphasia or dysarthria or any objective signs of neurologic deficit) Skin Exam: Warm, Dry Course - Vital Signs Last Recorded V/S: Last Vital Signs Temp 96.8 F L 01/15/20 07:58 Pulse 64 01/15/20 09:05 Resp 16 01/15/20 09:05 BP 132/65 01/15/20 09:05 Pulse Ox 98 01/15/20 09:05 Orthostatic Blood Pressure [ 127/75 Standing] Orthostatic Blood Pressure [ 118/81 Sitting] Orthostatic Blood Pressure [ 124/67 Supine] - Orders/Labs/Meds Labs: Laboratory Tests 01/15/20 01/15/20 Range/Units 08:35 08:35 WBC 6.0 (4.5-11.0) K/uL RBC 4.19 (3.30-5.50) M/uL Hgb 14.9 D (12.0-15.0) g/dL Hct 42.9 (36.0-48.0) % MCV 102 H (80-98) fL MCH 36 H (27-31) pg MCHC 35 (32-36) % Plt Count 176 (150-400) K/uL Neut % (Auto) 67 H (36-66) % Lymph % (Auto) 24 (24-44) % [place] % (Auto) 8 H (2-6) % Eos % (Auto) 1 L (2-4) % Baso % (Auto) 1 (0-1) % Sodium 144 (140-148) mmol/L Potassium 4.3 (3.6-5.2) mmol/L Chloride 108 (100-108) mmol/L Carbon Dioxide 29 (21-32) mmol/L Anion Gap 7.2 (5.0-14.0) mmol/L BUN 15 (7-18) mg/dL Creatinine 1.0 (0.6-1.0) mg/dL Est Cr Clr Drug Dosing 49.12 mL/min Estimated GFR (MDRD) 55 L (>60) Glucose 105 (74-106) mg/dL Calcium 9.4 (8.5-10.1) mg/dL - Re-Assessments/Exams Free Text/Narrative Re-Assessment/Exam: 01/15/20 08:42 Orthostatic blood pressures were obtained, CBC BMP were obtained. 01/15/20 09:09 Orthostatic blood pressures are normal, labs are reassuring. Patient remained asymptomatic while in the emergency room. My recommendation is to continue the medications expecting some side effects for the first week to 2 weeks but if they are intolerable she can hold her medicine tonight and then discuss her symptoms with the neurologist tomorrow. Departure - Departure Time of Disposition: : Disposition: Home, Self-Care 01 Clinical Impression: Chronic daily headache, Medication side effects - Discharge Information Instructions: General Headache Without Cause Referrals: PCP,None [Primary Care Provider] - Forms: ED Department Discharge Care Plan Goals: Continue current medications as prescribed unless you want to hold the topiramate tonight and discuss the side effects with your neurologist tomorrow. Sepsis Event Note - Evaluation Sepsis Screening Result: No Definite Risk - Focused Exam Vital Signs: Vital Signs Temp Pulse Resp BP Pulse Ox 01/15/20 09:05 64 16 132/65 98 01/15/20 08:40 73 127/75 01/15/20 07:58 96.8 F L 59 L 16 143/63 H 95 01/15/20 07:50 96.8 F L 59 L 16 143/63 H 95 Date Exam was Performed: 01/15/20 Time Exam was Performed: 09:48
[2020-01-15 09:16] VITALS: BP 132/65; PULSE 64
== END 2020-01-15 09:23 | disposition home or self-care (01) ==
LOC: JP.ED 07:42
DX: R51 Headache (principal); R53.1 Weakness; R42 Dizziness and giddiness; R53.83 Other fatigue; T42.6X5A Adverse effect of other antiepileptic and sedative-hypnotic drugs, initial encounter; I10 Essential (primary) hypertension; K21.9 Gastro-esophageal reflux disease without esophagitis; Z88.8 Allergy status to other drugs, medicaments and biological substances; Z91.040 Latex allergy status; Z88.5 Allergy status to narcotic agent; Z79.82 Long term (current) use of aspirin; Z79.899 Other long term (current) drug therapy; Z09 Encounter for follow-up examination after completed treatment for conditions other than malignant neoplasm; Z86.711 Personal history of pulmonary embolism
CPT/HCPCS: 36415; 80048; 85025; 99284

== ENCOUNTER 2021-04-23 15:44 | Emergency (ER) | payer MEDICARE, BC ==
[2021-04-23 15:52] VITALS: BP 121/55; PULSE 65
== END 2021-04-23 16:40 | disposition left against medical advice (07) ==
LOC: JP.ED 15:44
DX: Z53.21 Procedure and treatment not carried out due to patient leaving prior to being seen by health care provider (principal)

== ENCOUNTER 2021-09-18 11:31 | Emergency (ER) | payer MEDICARE, BC ==
[2021-09-18 11:36] VITALS: BP 131/68; PULSE 68
[2021-09-18] MEDS ORDERED: Ibuprofen 400 MG Tab PO ONE (12:03)
== END 2021-09-18 14:05 | disposition home or self-care (01) ==
LOC: JP.ED 11:31
DX: M25.461 Effusion, right knee (principal); M25.561 Pain in right knee; E78.00 Pure hypercholesterolemia, unspecified; I10 Essential (primary) hypertension; K21.9 Gastro-esophageal reflux disease without esophagitis; Z91.040 Latex allergy status; Z88.5 Allergy status to narcotic agent; Z88.1 Allergy status to other antibiotic agents; Z88.8 Allergy status to other drugs, medicaments and biological substances; Z79.82 Long term (current) use of aspirin; Z79.899 Other long term (current) drug therapy; Z96.651 Presence of right artificial knee joint
CPT/HCPCS: 20610; 73560-26-RT; 73560-RT; 87070; 87205; 89060; 99284; 99284-25; A9270-GY

== ENCOUNTER 2022-02-13 19:47 | Emergency (ER) | payer MEDICARE, BC ==
[2022-02-13] MEDS ORDERED: Sodium Chloride 0.9% 10 ML Syringe FLUSH PRN (19:50)
[2022-02-13 20:15] LABS: ESTIMATED GFR 54 mL/min (>60)
[2022-02-13] MEDS ORDERED: Sodium Chloride 0.9% 75 ML IV SCH (22:15)
[2022-02-13] MEDS ORDERED: Iopamidol 612 MG/ML 100 ML Bottle IV SCH (22:15)
[2022-02-14] MEDS ORDERED: Cefdinir 300 MG Cap PO ONE (00:14)
[2022-02-14 04:37] VITALS: BP 123/60
[2022-02-14 05:37] VITALS: PULSE 55
== END 2022-02-14 09:13 | disposition home or self-care (01) ==
LOC: MERGE 19:47 → JP.ED 19:47
DX: M25.552 Pain in left hip (principal); J18.9 Pneumonia, unspecified organism; N30.00 Acute cystitis without hematuria; M54.2 Cervicalgia; R51.9 Headache, unspecified; Z88.5 Allergy status to narcotic agent; Z88.8 Allergy status to other drugs, medicaments and biological substances; Z20.822 Contact with and (suspected) exposure to COVID-19; W17.89XA Other fall from one level to another, initial encounter
CPT/HCPCS: 36415; 70450; 71045; 71045-26; 71260; 72125; 73502-26-LT; 73502-LT; 80053; 82550; 85025; 85610; 85730; 93010; 99283; 99284-25; A9270-GY; J3490; Q9967; U0002

== ENCOUNTER 2022-04-27 21:43 | Emergency (ER) | payer MEDICARE, BC ==
[2022-04-27 22:12] VITALS: BP 147/80; PULSE 72
[2022-04-27 22:53] LABS: ESTIMATED GFR 61 mL/min (>60)
== END 2022-04-27 23:46 | disposition home or self-care (01) ==
LOC: JP.ED 21:43
DX: K80.20 Calculus of gallbladder without cholecystitis without obstruction (principal); K21.9 Gastro-esophageal reflux disease without esophagitis; I10 Essential (primary) hypertension; Z88.8 Allergy status to other drugs, medicaments and biological substances; Z91.040 Latex allergy status; Z88.6 Allergy status to analgesic agent; Z79.899 Other long term (current) drug therapy; Z79.82 Long term (current) use of aspirin; Z90.49 Acquired absence of other specified parts of digestive tract
CPT/HCPCS: 36415; 74019; 80053; 85025; 86140; 99284

== ENCOUNTER 2022-12-17 19:25 | Emergency (ER) | payer MEDICARE, BC ==
[2022-12-17] MEDS ORDERED: Sodium Chloride 0.9% 10 ML Syringe FLUSH PRN (19:35)
[2022-12-17] MEDS ORDERED: Ondansetron 4 MG/2 ML SDV IVPUSH ONE (19:45)
[2022-12-17] MEDS ORDERED: Sodium Chloride 0.9% 1,000 ML IV SCH ×2 (19:45→22:00)
[2022-12-17 20:08] LABS: ESTIMATED GFR 61 mL/min (>60)
[2022-12-17] MEDS ORDERED: Iopamidol 612 MG/ML 100 ML Bottle IV SCH (21:15)
[2022-12-17] MEDS ORDERED: Sodium Chloride 0.9% 50 ML IV SCH (21:15)
[2022-12-17] MEDS ORDERED: HYDROmorphone 0.5 MG/0.5 ML Syringe IVPUSH ONE (21:56)
[2022-12-17 22:45] VITALS: BP 143/78; PULSE 67
== END 2022-12-17 23:04 ==
LOC: JP.ED 19:25
DX: K85.10 Biliary acute pancreatitis without necrosis or infection (principal); K21.9 Gastro-esophageal reflux disease without esophagitis; I10 Essential (primary) hypertension; Z79.82 Long term (current) use of aspirin; Z79.899 Other long term (current) drug therapy; Z20.822 Contact with and (suspected) exposure to COVID-19
CPT/HCPCS: 36415; 74177; 80053; 83690; 85025; 86140; 96361; 96374; 99285; J1170; J2405; J3490; J7030; Q9967; U0002

== ENCOUNTER 2023-03-09 09:33 | Emergency (ER) | payer MEDICARE, BC ==
[2023-03-09 10:49] LABS: BASOPHILS ABSOLUTE AUTO 0.04 K/uL (0.00-0.10); BASOPHILS PERCENT AUTO 0.6 % (0.1-1.3); EOSINOPHILS ABSOLUTE AUTO 0.44 K/uL (0.00-0.40); EOSINOPHILS PERCENT AUTO 6.6 % (0.0-5.4); HEMATOCRIT 39.9 % (34.3-46.0); HEMOGLOBIN 13.5 g/dL (11.2-15.5); IMMATURE GRAN ABSOLUTE AUTO 0.04 K/uL (0.00-0.23); IMMATURE GRAN PERCENT AUTO 0.6 % (0.0-0.7); LYMPHOCYTES PERCENT AUTO 17.9 % (11.4-47.7); MEAN CORPUSCULAR HEMOGLOBIN 33.7 pg (31.6-35.5); MEAN CORPUSCULAR HGB CONC 33.8 g/dL (31.6-35.5); MEAN CORPUSCULAR VOLUME 99.5 fL (81.4-99.0); MONOCYTES ABSOLUTE AUTO 0.48 K/uL (0.20-0.90); MONOCYTES PERCENT AUTO 7.2 % (3.3-12.6); NEUTROPHILS PERCENT AUTO 67.1 % (40.0-78.1); PLATELET COUNT,PLT 223 K/uL (130-375); RED BLOOD CELL COUNT 4.01 M/uL (3.77-5.24); WHITE BLOOD CELL COUNT,WBC 6.7 K/uL (3.2-11.0)
[2023-03-09] MEDS ORDERED: Naloxone 0.4 MG/ML SDV IVPUSH PRN (10:49)
[2023-03-09] MEDS: fentaNYL 50 MCG/ML SDV IVPUSH ONE (10:54)
[2023-03-09 11:15] LABS: CALCIUM 9.4 mg/dL (8.5-10.1); CREATININE 0.9 mg/dL (0.6-1.0); EST CRCL DRUG DOSING (CG) 50.23 mL/min
[2023-03-09] MEDS: Sodium Chloride 0.9% 50 ML IV SCH (11:26)
[2023-03-09] MEDS: Iopamidol 612 MG/ML 100 ML Bottle IV ONE (11:27)
[2023-03-09 11:46] VITALS: BP 127/65; PULSE 60
== END 2023-03-09 12:52 | disposition home or self-care (01) ==
LOC: JP.ED 09:33
DX: J94.8 Other specified pleural conditions (principal); E78.00 Pure hypercholesterolemia, unspecified; I10 Essential (primary) hypertension; K21.9 Gastro-esophageal reflux disease without esophagitis; Z87.891 Personal history of nicotine dependence; Z86.718 Personal history of other venous thrombosis and embolism; Z88.8 Allergy status to other drugs, medicaments and biological substances; Z88.5 Allergy status to narcotic agent; Z91.040 Latex allergy status; Z91.048 Other nonmedicinal substance allergy status; Z79.899 Other long term (current) drug therapy; Z79.82 Long term (current) use of aspirin
CPT/HCPCS: 36415; 71260; 80048; 85025; 96374; 99285; J3010; J3490; Q9967

== ENCOUNTER 2023-06-14 05:50 | Emergency (ER) | payer MEDICARE, BC ==
[2023-06-14 06:37] LABS: BASOPHILS PERCENT AUTO 0.4 % (0.1-1.3); EOSINOPHILS ABSOLUTE AUTO 0.12 K/uL (0.00-0.40); EOSINOPHILS PERCENT AUTO 2.6 % (0.0-5.4); HEMATOCRIT 41.6 % (34.3-46.0); HEMOGLOBIN 14.3 g/dL (11.2-15.5); IMMATURE GRAN PERCENT AUTO 0.4 % (0.0-0.7); LYMPHOCYTES ABSOLUTE AUTO 1.79 K/uL (0.8-3.3); LYMPHOCYTES PERCENT AUTO 39.4 % (11.4-47.7); MEAN CORPUSCULAR HEMOGLOBIN 33.3 pg (31.6-35.5); MEAN CORPUSCULAR HGB CONC 34.4 g/dL (31.6-35.5); MONOCYTES ABSOLUTE AUTO 0.34 K/uL (0.20-0.90); MONOCYTES PERCENT AUTO 7.5 % (3.3-12.6); NEUTROPHILS ABSOLUTE AUTO 2.25 K/uL (1.0-7.6); NEUTROPHILS PERCENT AUTO 49.7 % (40.0-78.1); PLATELET COUNT,PLT 155 K/uL (130-375); RED BLOOD CELL COUNT 4.29 M/uL (3.77-5.24); WHITE BLOOD CELL COUNT,WBC 4.5 K/uL (3.2-11.0)
[2023-06-14 06:42] LABS: BASOPHILS ABSOLUTE AUTO 0.02 K/uL (0.00-0.10); IMMATURE GRAN ABSOLUTE AUTO 0.02 K/uL (0.00-0.23)
[2023-06-14 06:57] LABS: A/G RATIO 1.2 (1.2-2.2); ALANINE AMINOTRANSFERASE,ALT 11 U/L (12-78); ALBUMIN 3.7 g/dL (3.4-5.0); ALKALINE PHOSPHATASE 104 U/L (46-116); ASPARTATE AMNIOTRANSFERASE,AST 32 U/L (15-37); BILIRUBIN TOTAL 0.6 mg/dL (0.2-1.0); BLOOD UREA NITROGEN,BUN 27 mg/dL (7-18); C-REACTIVE PROTEIN 0.48 mg/dL (0.0-0.3); CALCIUM 8.9 mg/dL (8.5-10.1); CARBON DIOXIDE,CO2 26 mmol/L (21-32); CHLORIDE,CL 104 mmol/L (100-108); CREATININE 1.3 mg/dL (0.6-1.0); ESTIMATED GFR 44 mL/min (>60); GLUCOSE RANDOM 102 mg/dL (74-106); PHOSPHORUS 2.9 mg/dL (2.5-4.9); POTASSIUM,K 4.6 mmol/L (3.6-5.2); PROTEIN TOTAL,TP 6.8 g/dL (6.4-8.2); SODIUM,NA 140 mmol/L (140-148)
[2023-06-14 07:55] VITALS: BP 132/71; PULSE 65
[2023-06-14 08:04] LABS: APPEARANCE,URINE CLEAR (CLEAR); BILIRUBIN,URINE SMALL (NEGATIVE); COLOR,URINE YELLOW (YELLOW); GLUCOSE,URINE NEGATIVE (NEGATIVE); KETONES,URINE TRACE mg/dL (NEGATIVE); LEUKOCYTE ESTERASE,URINE NEGATIVE (NEGATIVE); NITRITE,URINE NEGATIVE (NEGATIVE); OCCULT BLOOD,URINE TRACE-INTACT (NEGATIVE); PROTEIN,URINE NEGATIVE (NEGATIVE)
[2023-06-14 08:22] LABS: AMORPHOUS SEDIMENT,URINE NOT SEEN; BACTERIA,URINE FEW; EPITHELIAL CELLS,URINE FEW; MUCUS,URINE MODERATE; RBC,URINE 0-5 (0-5); WBC,URINE 0-5 (0-5)
== END 2023-06-14 09:07 | disposition home or self-care (01) ==
LOC: JP.ED 05:50
DX: G60.9 Hereditary and idiopathic neuropathy, unspecified (principal); I10 Essential (primary) hypertension; K21.9 Gastro-esophageal reflux disease without esophagitis; Z87.891 Personal history of nicotine dependence; Z88.8 Allergy status to other drugs, medicaments and biological substances; Z91.040 Latex allergy status; Z88.5 Allergy status to narcotic agent; Z91.048 Other nonmedicinal substance allergy status; Z79.82 Long term (current) use of aspirin; Z79.899 Other long term (current) drug therapy
CPT/HCPCS: 36415; 80053; 81001; 83735; 84100; 85025; 86140; 99284